=== PATIENT | female | born 1970 | race Caucasian/White ===

== ENCOUNTER 2024-09-01 14:53 | Outpatient (OUT) | payer OTHER, MEDICAID, SELFPAY ==
--- OUTSIDE RECORDS SUMMARY | 2024-08-28 16:14 | XMS_ITS | Encounter Summary ---
Author Organization [facility] [place] [facility] tem Address [id number] [address] [place] [address] Care Team Providers Care Roving Department Supervisor Name Role Phone Ivett Dhillon APRN-FAMILY MEDICINE PHYSICIAN ASSISTANT Primary Care Provider Reason for Visit * Reason Comments Back Pain Pt states she had a neuro-stimulator placed in her back about 1 year at [facility]. She states the surgeon has since moved but the area is leaking fluid and is very painful to touch. Encounter Details Date Type Department Care Team (Late st Contact Info) Description 08/28/2024 4:14 PM EDT - 08/28/2024 7:06 PM EDT Emergency [facility] - Emergency [address] [place] [address] Cody Linn, DO [address] [place] [id number] Discharge Disposition: Left Without Treatment Social History Tobacco Use Types Packs/Day Years Used Date Smoking Tobacco: Heavy Smoker Cigarettes 1 25 Smokeless Tobacco: Never Alcohol Use Standard Drinks/Week Comments No 0 (1 standard drink = 0.6 oz pur e alcohol) [facility] Utilities Answer Date Recorded In the past 12 months has [employer] electric, gas, oil, or water company threatened to shut off services in your home? No 11/14/2023 PRAPARE - Transportation Answer Date Re corded In the past 12 months, has l ack of transportation kept you from medical appointments or from getting medications? No 10/20 In the past 12 months, has l ack of transportation kept you from meetings, work, or from getting things needed for daily living? No 11/14/2023 Housing Instability Answer Date Recorde d Are you worried or concerned that in the next two months you may not have stable housing that you own, rent or stay in as a part of a household? No 11/14/2023 Childcare Answer Date Recorded Childcare Unknown 07/18/2018 Employment Answer Date Recorded Employment Unknown 07/18/2018 Hunger Screening Answer Date Recorded Within the past 12 months we worried whether our food would run out before we got money to buy more. Never True 08/28/2024 Within the past 12 months th e food we bought just didn't last and we didn't have money to get more. Never True 08/28/2024 Purpose - Life Answer Date Recorded Purpose and direction in life Unknown Comments No Sex and Gender Information Value Date Recorded Sex Assigned at Not on file Legal Sex Female 11:36 AM EDT Gender Identity Not on file Sexual Orientation Not on file documented as of this encounter Last Filed Vital Signs Vital Sign Reading Time Taken Comments Blood Pressure 133/85 08/28/2024 4:32 PM EDT Pulse 92 08/28/2024 4:32 PM EDT Temperature 36.9 C (98.4 F) 08/28/2024 4:32 PM EDT Respiratory Rate 18 08/28/2024 4:32 PM EDT Oxygen Saturation 100% 08/28/2024 4:32 PM EDT Inhaled Oxygen Concentration - - Weight 122.5 kg (270 lb) 08/28/2024 4:32 PM EDT Height 182.9 cm (6') 08/28/2024 4:32 PM EDT Body Mass Index 36.62 08/28/2024 4:32 PM EDT documented in this encounter Medications at Time of Discharge amitriptyline (ELAVIL) 50 mg tablet Take 1 tablet (50 mg total) by mouth nightly. 30 tablet 5 07/18/2016 baclofen (LIORESAL) 10 mg tablet Take 1 tablet (10 mg total) by mouth nightly. benzonatate (TESSALON PERLES) 100 mg capsule Take 1 capsule (100 mg total) by mouth every 8 (eight) hours. 21 capsule 02/06/2022 benzonatate (TESSALON PERLES) 100 mg capsule Take 1 capsule (100 mg total) by mouth every 8 (eight) hours. 21 capsule 05/11/2023 BROVANA 15 mcg/2 mL solution for nebulizationIndic ations:Chronic obstructive pulmonary disease, unspecified COPD type ([facility]) INHALE 2 ML (15 MCG TOTAL) BY NEBULIZATION 2 (TWO) TIMES A DAY. 120 mL 5 09/14/2020 budesonide-formot [place] (SYMBICORT) 160-4.5 mcg/actuation inhaler Inhale 2 puffs in the morning and 2 puffs before bedtime. calcium carbonate (OS-MIGUEL) 500 mg calcium (1,250 mg) tablet Take 1 tablet (500 mg total) by mouth in the morning and 1 tablet (500 mg total) before bedtime. 02/02/2020 cetirizine (ZyrTEC) 10 mg capsule Take 1 capsule (10 mg total) by mouth in the morning. cyanocobalamin (VITAMIN B12) 1,000 mcg tablet, sublingual Place 1 tablet (1,000 mcg total) under the tongue daily. 90 tablet 3 11/25/2020 dicyclomine (BENTYL) 20 mg tablet Take 1 tablet (20 mg total) by mouth every 6 (six) hours. DULoxetine (CYMBALTA) 30 mg capsule Take 1 capsule (30 mg total) by mouth 2 (two) times a day. 60 capsule 1 09/05/2016 ergocalciferol (DRISDOL) 1,250 mcg (50,000 unit) capsule Take 1 capsule (50,000 Units total) by mouth once a week. SUNDAYS 8 capsule 11/28/2020 famotidine (PEPCID) 20 mg tablet Take 1 tablet (20 mg total) by mouth in the morning. ferrous sulfate 325 (65 FE) mg tablet Take 1 tablet (325 mg total) by mouth daily with breakfast. fluticasone propionate (FLONASE) 50 mcg/actuation nasal spray Administer 1 spray into each nostril in the morning. fluticasone/vilan terol (BREO ELLIPTA INHL) Inhale. folic acid (FOLVITE) 1 mg tablet Take 1 tablet (1 mg total) by mouth in the morning. furosemide (LASIX) 40 mg tablet Take 1 tablet (40 mg total) by mouth 2 (two) times a day before meals. gabapentin (NEURONTIN) 400 mg capsule Take 600 mg by mouth in the morning and 600 mg before bedtime. gabapentin (NEURONTIN) 800 mg tablet Take 1 tablet (800 mg total) by mouth nightly. ipratropium-albut [place] (DUO-NEB) 0.5 mg-3 mg(2.5 mg base)/3 mL nebulizer Inhale 3 mL by nebulization 4 (four) times a day as needed for wheezing. ketorolac (ACULAR) 0.5 % ophthalmic solution Administer 1 drop to the right eye every 6 (six) hours. 5 mL 10/04/2021 meclizine (ANTIVERT) 25 mg tablet Take 1 tablet (25 mg total) by mouth 3 (three) times a day as needed for dizziness. 20 tablet 04/19/2024 metoprolol succinate XL (TOPROL XL) 25 mg 24 hr tablet Take 1 tablet (25 mg total) by mouth in the morning. 02/07/2021 nicotine (NICODERM CQ) 14 mg/[address] 1 patch on the skin daily. pantoprazole (PROTONIX) 40 mg EC tablet Take 1 tablet (40 mg total) by mouth in the morning. pramipexole (MIRAPEX) 0.5 mg tablet TAKE 1 TABLET BY MOUTH EVERY NIGHT 2 TO 3 HOURS BEFORE BEDTIME 03/01/2021 roflumilast (DALIRESP) 500 mcg tablet Take 1 tablet (500 mcg total) by mouth daily. therapeutic multivitamin (THERAGRAN) tablet Take 1 tablet by mouth in the morning. zoledronic enyg-jemjtaiO-dpx er (RECLAST) 5 mg/100 mL piggyback Infuse 100 mL (5 mg total) into a venous catheter once. documented as of this encounter Plan of Treatment Not on file documented as of this encounter Goals Goal Patient Goal Type Associated Problems Recent Progress Patient-Stated? Author Home with self care General Yes Teresa Momin, IVONNE Note: Evaluation of progress towards goal: Patient plans to return home with self care and the support of her significant other and son. documented as of this encounter Visit Diagnoses Not on filedocumented in this encounter Care Teams Roving Department Supervisor Relationship Specialty Start Date End Date Ivett Dhillon APRN-FAMILY MEDICINE PHYSICIAN ASSISTANT PCP - General Nurse Practitioner 11/10/23 documented as of this encounter
--- OUTSIDE RECORDS SUMMARY | 2024-09-01 13:40 | XMS_ITS | Encounter Summary ---
Author Organization [facility] Address [address] [place] [address] Care Team Providers Care Plug Making Operator Name Role Phone Ivett Dhillon NP Unavailable [phone] Julio Spencer MD Primary Care Provider [phone] Julio Spencer MD Unavailable Reason for Visit * Reason Comments Medicare Annual Wellness Visit Initial Encounter Details Date Type Department Care Team (Late st Contact Info) Description 09/01/2024 1:40 PM EDT Office Visit [facility] [address] [place] [address] Ivett Dhillon NP [address] [place] [id number] Centrilobular emphysema (HCC) (Primary Dx); Gastroesophageal reflux disease without esophagitis; Morbid (severe) obesity due to excess calories (CMS-HCC); Cigarette nicotine dependence without complication; Encounter for subsequent annual wellness visit (AWV) in Medicare patient; Non-compliance with treatment; Encounter for screening mammogram for malignant neoplasm of breast; Iron deficiency anemia following bariatric surgery Social History Tobacco Use Types Packs/Day Years Used Date Smoking Tobacco: Every Day Cigarettes Smokeless Tobacco: Never Comments:Started smokin + years Alcohol Use Standard Drinks/Week Comments Yes 0 (1 standard drink = 0.6 oz pure alcohol) 1-2 drinks monthly or less, caffeine more than 4 cups per day Social Connection and Isolation Panel [NHANES] A nswer Date Recorded In a typical week, how many times do you talk on the phone with family, friends, or neighbors? Three times a week 04/07/19 How often do you get togethe r with friends or relatives? Twice a week 04/07/2023 How often do you attend chur ch or mormon services? 1 to 4 times per year 04/07/2023 Do you belong to any clubs o r organizations such as voodoo groups, unions, fraternal or athletic groups, or school groups? No 04/07/2023 How often do you attend meet ings of the clubs or organizations you belong to? Never 04/07/2023 Are you , , di vorced, , never , or living with a partner? 04/07/2023 AUDIT-C Answer Date Recorded Q1: How often do you have a drink containing alc ohol? Monthly or less 04/07/2023 Q2: How many drinks containi ng alcohol do you have on a typical day when you are drinking? 1 or 2 04/07/2023 Q3: How often do you have si x or more drinks on one occasion? Less than monthly 04/07/2023 Overall Financial Resource Strain (CARDIA) Answe r Date Recorded How hard is it for you to pa y for the very basics like food, housing, medical care, and heating? Somewhat hard 04/07/2023 PHQ-2 Answer Date Recorded Patient Health Questionnaire-2 Score 0 09/01/2024 [facility] - Occupational Stress Questionnaire Answer Date Recorded Do you feel stress - tense, restless, nervous, or anxious, or unable to sleep at night because your mind is troubled all the time - these days? Not at all 04/07/2023 Exercise Vital Sign Answer Date Recorde d On average, how many days pe r week do you engage in moderate to strenuous exercise (like a brisk walk)? 0 days 04/07/2023 On average, how many minutes do you engage in exercise at this level? 0 min 04/07/2023 Hunger Vital Sign Answer Date Recorded Within the past 12 months, y ou worried that your food would run out before you got the money to buy more. Sometimes true Within the past 12 months, t he food you bought just didn't last and you didn't have money to get more. Sometimes true PRAPARE - Transportation Answer Date Re corded In the past 12 months, has l ack of transportation kept you from medical appointments or from getting medications? No 03/21 In the past 12 months, has l ack of transportation kept you from meetings, work, or from getting things needed for daily living? No 04/07/2023 Housing Stability Vital Sign Answer Felice e Recorded In the last 12 months, was t here a time when you were not able to pay the mortgage or rent on time? No 04/07/2023 In the last 12 months, how many places have you lived? 1 04/07/2023 In the last 12 months, was t here a time when you did not have a steady place to sleep or slept in a senior care (including now)? No 04/07/2023 Comments Unknown Sex and Gender Information Value Date Recorded Sex Assigned at Not on file Legal Sex Female 6:45 PM EDT Gender Identity Not on file Sexual Orientation Not on file documented as of this encounter Last Filed Vital Signs Vital Sign Reading Time Taken Comments Blood Pressure 110/68 09/01/2024 1:39 PM EDT Pulse 102 09/01/2024 1:39 PM EDT Temperature 37.2 C (99 F) 09/01/2024 1:39 PM EDT Respiratory Rate 20 09/01/2024 1:39 PM EDT Oxygen Saturation 91% 09/01/2024 1:39 PM EDT Inhaled Oxygen Concentration - - Weight 107 kg (235 lb) 09/01/2024 1:39 PM EDT Height - - Body Mass Index 31.87 02/26/2024 2:31 PM EST documented in this encounter Functional Status * Over the past 2 weeks, how often have you been bothered by any of the following problems? Question Answer Date of Assessment Author Little interest or pleasure in doing things Not at all 09/01/2024 1:42 PM EDT ASHOK FULTON Feeling down, depressed, or hopeless Not at all 09/01/2024 1:42 PM EDT ASHOK FULTON Patient Health Questionnaire -2 Score 0 09/01/2024 1:42 PM EDT ASHOK FULTON * Question Answer Date of Assessment Author Trouble falling or staying asleep, or sleeping too much Nearly every day 09/01/2024 1:42 PM EDT ASHOK FULTON Feeling tired or having little energy Nearly every day 09/01/2024 1:42 PM EDT ASHOK FULTON Poor appetite or overeating Nearly every day 09/01/2024 1:42 PM EDT ASHOK FULTON A Feeling bad about yourself - or that you are a failure or have let yourself or your family down Not at all 09/01/2024 1:42 PM EDT ASHOK FULTON Trouble concentrating on things, such as reading the newspaper or watching television Not at all 09/01/2024 1:42 PM EDT ASHOK FULTON A Moving or speaking so slowly that other people could have noticed? Or the opposite - being so fidgety or restless that you have been moving around a lot more than usual. Nearly every day 09/01/2024 1:42 PM EDT ASHOK FULTON Thoughts that you would be better off or hurting yourself in some way Not at all 09/01/2024 1:42 PM EDT REDD FULTON Patient Health Questionnaire-9 Score 12 09/01/2024 1:42 PM EDT HEMAL FULTON documented as of this encounter Progress Notes * Ivett Dhillon NP - 09/01/2024 7:18 AM EDTAssociated Problem(s): Iron deficiency anemia following bariatric surgery Non compliant with iron, has been referred to hematology at [facility] * Ivett Dhillon NP - 09/01/2024 7:16 AM EDTAssociated Problem(s): Non- compliance with treatment Cancels and no shows for appts, as well as fu for infusions Does not take her supplements regularly for post bariatric surgery maintenance * Ivett Dhillon NP - 09/01/2024 7:15 AM EDTAssociated Problem(s): Encounter for subsequent annual wellness visit (AWV) in Medicare patient Reviewed Ht/Wt/BMI Recommend eye exam yearly Recommend dental exams twice a year Balance work/leisure activities Exercises is recommended most days of the week (appropriate as chronic conditions allow) Follow up yearly and prn * Ivett Dhillon NP - 09/01/2024 6:45 AM EDTAssociated Problem(s): Cigarette nicotine dependence without complication The patient has been advised of the risks of continued smoking: stroke, CA, all forms of cancer, lung disease, and . Options for quitting smoking include: cold turkey, hypnosis, acupuncture, nicotine replacement meds(gum, lozenges, and patches), Buproprion, and Varenicline. At this time pt is encouraged to evaluate their goals for wanting to quit smoking, and reach out toprovider when ready to start this process * Ivett Dhillon NP - 09/01/2024 6:44 AM EDTAssociated Problem(s): Morbid (severe) obesity due to excess calories ([facility]) Discussed with patient their BMI (actual, verses recommended). We have also discussed lifestyle modifications: attempts to perform physical activity as chronic conditions allow, also to monitor dietary intake: increasing protein/fruits/veggies and lowering carb intake (unless contraindicated). Limit sodas, juices, and sugary drinks. * Ivett Dhillon NP - 09/01/2024 6:44 AM EDTAssociated Problem(s): Gastroesophageal reflux disease without esophagitis Recommendations: freq small meals, nothing to eat or drink at least 2 hours prior to bed, limit caffeine, alcohol, as well as spicy foods Meds to limit or avoid if possible: NSAIDS Elevate HOB if possible Current meds: pepcid and pantoprazole * Ivett Dhillon NP - 09/01/2024 6:44 AM EDTAssociated Problem(s): Centrilobular emphysema (HCC) Continue with current inhalers Recommend quitting smoking documented in this encounter Plan of Treatment Upcoming Encounters Date Type Department Care Team (Late st Contact Info) Description 10/07/2024 10:00 AM EDT Office Visit [facility] [address] [place] [address] Ivett Dhillon NP [address] [place] [phone] 09/07/2025 10:00 AM EDT Office Visit [facility] [address] [place] [address] Ivett Dhillon NP [address] [place] [address] Scheduled Orders Name Type Priority Associated Diagnoses Orde r Schedule Bilateral screening mammogram Imaging Routine Encounter for screening mammogram for malignant neoplasm of breast Expected: 09/01/2024 (Approximate), Expires: 11/02/2025 documented as of this encounter Visit Diagnoses Diagnosis Centrilobular emphysema (HCC)- Primary Gastroesophageal reflux disease without esophagitis Esophageal reflux Morbid (severe) obesity due to excess calories ([facility]) Cigarette nicotine dependence without complication Encounter for subsequent annual wellness visit (AWV) in Medicare patient Non-compliance with treatment Personal history of noncompliance with medical treatment, presenting hazards to health Encounter for screening mammogram for malignant neoplasm of breast Iron deficiency anemia following bariatric surgery documented in this encounter Additional Health Concerns Assessment Noted Time PHQ-9 Depression Total Score: 12 025 1:42 PM EDT documented as of this encounter Care Teams Plug Making Operator Relationship Specialty Start Date End Date Julio Spencer MD [address] [place] [phone] PCP - General Family Medicine 03/15/23 Julio Spencer MD [address] [place] [phone] PCP - Devoted 03/21/24 Ivett Dhillon NP Referring Physician Family Medicine 10/29/22 documented as of this encounter
--- OUTSIDE RECORDS SUMMARY | 2024-09-01 14:59 | XMS_ITS | Clinical Summary ---
Author Organization [facility] Address [address] [place], [place] [id number] Care Team Providers Care Granulator Tender Name Role Phone BraxtonjooaudraPippaindira Sargent CNP Primary Care Provider [phone] Allergies Active Allergy Reactions Criticality Noted Date Comments Heparin Intolerance 05/04/2014 Pt risk of GI bleed Nsaids (Non-Steroidal Anti-Inflammatory Drug) Intolerance 05/04/2014 Pt high risk for GI bleed Medications amitriptyline (ELAVIL) 50 mg tabletIndicatio ns:Anemia, unspecified 03/25/19 15 Active furosemide (LASIX) 40 mg tabletIndicatio ns:Anemia, unspecified 03/24/19 15 Active gabapentin (NEURONTIN) 300 mg capsuleIndicati ons:Anemia, unspecified 03/25/19 15 Active HYDROcodone-feroz taminophen (NORCO) 5-325 mg per tabletIndicatio ns:Anemia, unspecified 03/26/[address] (PROTONIX) 40 mg tabletIndicatio ns:Anemia, unspecified 12/29/19 14 Active tiZANidine (ZANAFLEX) 4 mg tabletIndicatio ns:Anemia, unspecified 03/25/19 15 Active cyanocobalamin (VITAMIN B-12) 1,000 mcg tabIndications: prevention of vitamin B12 deficiency Take 1,000 mcg by mouth once daily. 1000 mcg injection once a month also. Indications: PREVENTION OF VITAMIN B12 DEFICIENCY Active Ferrous Fumarate 324 mg (106 mg iron) tabIndications: Anemia, unspecified Take 1 tablet by mouth once daily. Active folic acid 1 mg tabletIndicatio ns:Anemia, unspecified Take 1 mg by mouth once daily. Active Ascorbic Acid (VITAMIN C) 500 mg cpERIndications :Anemia, unspecified Take 1 tablet by mouth once daily. Active ergocalciferol, vitamin D2, (VITAMIN D) 50,000 unit capsuleIndicati ons:prevention of vitamin D deficiency Take 50,000 Units by mouth once daily. Indications: PREVENTION OF VITAMIN D DEFICIENCY Active MEDROXYPROGESTE ANGY ACETATE (DEPO-PROVERA INTRAMUSC.) Inject 1 Dose intramuscularly every 3 months. Active Active Problems Problem Noted Date Diagnosed Date Anemia 04/20/2014 Overview (11/18/2014): ICD-10 Go-Live Social History Tobacco Use Types Packs/Day Years Used Date Smoking Tobacco: Every Day Smokeless Tobacco: Never Alcohol Use Standard Drinks/Week Comments No 0 (1 standard drink = 0.6 oz pur e alcohol) Comments Unknown Sex and Gender Information Value Date Recorded Sex Assigned at Not on file Legal Sex Female 1:21 PM EST Gender Identity Not on file Sexual Orientation Not on file Last Filed Vital Signs Vital Sign Reading Time Taken Comments Blood Pressure 133/85 03/15/2015 2:54 PM EST Pulse 105 03/15/2015 2:54 PM EST Temperature 36.8 C (98.2 F) 06/08/2014 9:00 AM EDT Respiratory Rate 16 03/15/2015 2:54 PM EST Oxygen Saturation 99% 05/10/2014 10:52 AM EDT Inhaled Oxygen Concentration - - Weight 120.7 kg (266 lb) 03/15/2015 2:54 PM EST Height 182.9 cm (6') 03/15/2015 2:54 PM EST Body Mass Index 36.08 03/15/2015 2:54 PM EST Plan of Treatment Health Maintenance Due Date Last Done Comments Anxiety Screening 1989 Depression Screening 1989 HIV Screening 1989 Hepatitis C Screening 1989 DTaP,Tdap,Td Vaccine (1 - Tdap) 1990 Hepatitis B Vaccine (1 of 3 - 19+ 3-dose series) 03/14 Cervical Cancer Screening [address] M[address] Colonography 2016 Cologuard (FIT-DNA) 2016 Colonoscopy 2016 Colorectal Cancer Screening 2016 Diabetes Screening 2016 Fecal Occult Blood 2016 Lipid Screening 2016 Sigmoidoscopy 2016 Pneumococcal Vaccine: 50+ (1 of 1 - PCV) 2021 Shingrix Vaccine (1 of 2) 2021 Covid-19 Vaccine (1 - 2023- season) 2023 Influenza Vaccine (#1) [address] [place] [address] [place] [address] MEDICARE MEDICAID [place] Care Teams Granulator Tender Relationship Specialty Start Date End Date Ivett Dhillon, MACHINE BANDER AND CELLOPHANER HELPER PCP - General Family Medicine 09/28/14
--- OUTSIDE RECORDS SUMMARY | 2024-09-01 14:59 | XMS_ITS | Encounter Summary ---
Author Organization [facility] tem Address [id number] [address] [place] [address] Care Team Providers Care Word Processing Operator Name Role Phone Ivett Dhillon IN HOME TUTOR-STRAW BOSS Primary Care Provider Encounter Details Date Type Department Care Team (Late st Contact Info) Description 03/01/2020 Telephone [facility] [address] [facility] [place] [place] [id number] Irene Salcido MD [address] [facility] [address] [place] [address] Social History Tobacco Use Types Packs/Day Years Used Date Smoking Tobacco: Heavy Smoker Cigarettes 1 25 Smokeless Tobacco: Never Alcohol Use Standard Drinks/Week Comments No 0 (1 standard drink = 0.6 oz pur e alcohol) Childcare Answer Date Recorded Childcare Unknown 07/18/2018 Employment Answer Date Recorded Employment Unknown 07/18/2018 Purpose - Life Answer Date Recorded Purpose and direction in life Unknown Comments No Sex and Gender Information Value Date Recorded Sex Assigned at Not on file Legal Sex Female 11:36 AM EDT Gender Identity Not on file Sexual Orientation Not on file COVID-19 Exposure Response Date Recorded In the last month, have you been in contact with someone who was confirmed or suspected to have Coronavirus / COVID-19? No / Unsure 03/02/2020 10:26 AM EST documented as of this encounter Miscellaneous Notes * Telephone Encounter - Amy Richard - 03/01/2020 10:26 AM EST Can you complete the progress note dated 02/29/20? Cardiology called requesting the note. * Telephone Encounter - Irene Salcido MD - 03/01/2020 10:26 AM EST complete documented in this encounter Plan of Treatment Not on file documented as of this encounter Visit Diagnoses Not on filedocumented in this encounter Additional Health Concerns Infection Onset Date Last Indicated Resolved Time COVID-19 Rule-Out 02/06/2022 02/06/2022 02/06/2022 3:19 AM EST Respiratory Rule-Out 04/19/2024 04/19/2024 025 2:24 PM EST Respiratory Rule-Out 04/28/2024 04/28/2024 025 12:02 AM EDT documented as of this encounter Care Teams Word Processing Operator Relationship Specialty Start Date End Date Ivett Dhillon, IN HOME TUTOR-STRAW BOSS PCP - General Nurse Practitioner 11/10/23 documented as of this encounter
--- OUTSIDE RECORDS SUMMARY | 2024-09-01 14:59 | XMS_ITS | Encounter Summary ---
Author Organization [facility] tem Address [id number] [address] [place] [address] Care Team Providers Care Call Center Analyst Name Role Phone Ivett Dhillon GEOINT ANALYST-ESTHETIC DERMATOLOGIST Primary Care Provider Encounter Details Date Type Department Care Team (Latest Contact Info) Description 08/28/2024 Travel Social History Tobacco Use Types Packs/Day Years Used Date Smoking Tobacco: Heavy Smoker Cigarettes 1 25 Smokeless Tobacco: Never Alcohol Use Standard Drinks/Week Comments No 0 (1 standard drink = 0.6 oz pur e alcohol) [facility] Utilities Answer Date Recorded In the past 12 months has e electric, gas, oil, or water company threatened [...] on file documented as of this encounter Plan of Treatment Not on file documented as of this encounter Goals Goal Patient Goal Type Associated Problems Recent Progress Patient-Stated? Author Home with self care General Yes Teresa Momin, RN Note: Evaluation of progress towards goal: Patient plans to return home with self care and the support of her significant other and son. documented as of this encounter Visit Diagnoses Not on filedocumented in this encounter Care Teams Call Center Analyst Relationship Specialty Start Date End Date Ivett Dhillon, TARIQ-ESTHETIC DERMATOLOGIST PCP - General Nurse Practitioner 11/10/23 documented as of this encounter
--- OUTSIDE RECORDS SUMMARY | 2024-09-01 14:59 | XMS_ITS | Clinical Summary ---
Author Organization [employer] [facility] Address [id number] [address] [place] [address] Care Team Providers Care Routeman Name Role Phone Ivett Dhillon SEWING TEACHER-PLEATING MACHINE OPERATOR Primary Care Provider Allergies Active Allergy Reactions Criticality Noted Date Comments Heparin Analogues bleeding 04/05/2016 Was told not to take this due to her gastric bypass. No real allergy Nsaids (Non-Steroidal Anti-Inflammatory Drug) bleeding 04/05/2016 Medications furosemide (LASIX) 40 mg tablet Take 1 tablet (40 mg total) by mouth 2 (two) times a day before meals. Active ferrous sulfate 325 (65 FE) mg tablet Take 1 tablet (325 mg total) by mouth daily with breakfast. Active folic acid (FOLVITE) 1 mg tablet Take 1 tablet (1 mg total) by mouth in the morning. Active famotidine (PEPCID) 20 mg tablet Take 1 tablet (20 mg total) by mouth in the morning. Active therapeutic multivitamin (THERAGRAN) tablet Take 1 tablet by mouth in the morning. Active amitriptyline (ELAVIL) 50 mg tablet Take 1 tablet (50 mg total) by mouth nightly. 30 tablet 5 07/19/19 17 Active DULoxetine (CYMBALTA) 30 mg capsule Take 1 capsule (30 mg total) by mouth 2 (two) times a day. 60 capsule 1 09/06/19 17 Active Additional Information Patient taking differently: 60 mgoralDaily, 60 mg in the morning and 30 mg at night, Reported on 11/14/2023 ipratropium-albu teroL (DUO-NEB) 0.5 mg-3 mg(2.5 mg base)/3 mL nebulizer Inhale 3 mL by nebulization 4 (four) times a day as needed for wheezing. Active roflumilast (DALIRESP) 500 mcg tablet Take 1 tablet (500 mcg total) by mouth daily. Active calcium carbonate (OS-MIGUEL) 500 mg calcium (1,250 mg) tablet Take 1 tablet (500 mg total) by mouth in the morning and 1 tablet (500 mg total) before bedtime. 02/02/20 20 Active nicotine (NICODERM CQ) 14 mg/[address] 1 patch on the skin daily. Active gabapentin (NEURONTIN) 400 mg capsule Take 600 mg by mouth in the morning and 600 mg before bedtime. Active zoledronic apff-cuwwkidL-zy ter (RECLAST) 5 mg/100 mL piggyback Infuse 100 mL (5 mg total) into a venous catheter once. Active cetirizine (ZyrTEC) 10 mg capsule Take 1 capsule (10 mg total) by mouth in the morning. Active fluticasone propionate (FLONASE) 50 mcg/actuation nasal spray Administer 1 spray into each nostril in the morning. Active BROVANA 15 mcg/2 mL solution for nebulizationIndi cations:Chronic obstructive pulmonary disease, unspecified COPD type (CMS-HCC) INHALE 2 ML (15 MCG TOTAL) BY NEBULIZATION 2 (TWO) TIMES A DAY. 120 mL 5 09/15/19 21 Active budesonide-formo teroL (SYMBICORT) 160-4.5 mcg/actuation inhaler Inhale 2 puffs in the morning and 2 puffs before bedtime. Active baclofen (LIORESAL) 10 mg tablet Take 1 tablet (10 mg total) by mouth nightly. Active gabapentin (NEURONTIN) 800 mg tablet Take 1 tablet (800 mg total) by mouth nightly. Active pantoprazole (PROTONIX) 40 mg EC tablet Take 1 tablet (40 mg total) by mouth in the morning. Active cyanocobalamin (VITAMIN B12) 1,000 mcg tablet, sublingual Place 1 tablet (1,000 mcg total) under the tongue daily. 90 tablet 3 11/26/19 21 Active ergocalciferol (DRISDOL) 1,250 mcg (50,000 unit) capsule Take 1 capsule (50,000 Units total) by mouth once a week. SUNDAYS 8 capsule 11/29/19 21 Active metoprolol succinate XL (TOPROL XL) 25 mg 24 hr tablet Take 1 tablet (25 mg total) by mouth in the morning. 02/08/20 21 Active pramipexole (MIRAPEX) 0.5 mg tablet TAKE 1 TABLET BY MOUTH EVERY NIGHT 2 TO 3 HOURS BEFORE BEDTIME 03/01/19 22 Active dicyclomine (BENTYL) 20 mg tablet Take 1 tablet (20 mg total) by mouth every 6 (six) hours. Active ketorolac (ACULAR) 0.5 % ophthalmic solution Administer 1 drop to the right eye every 6 (six) hours. 5 mL 10/05/19 22 Active Additional Information Patient not taking.Reported on 11/14/2023 benzonatate (TESSALON PERLES) 100 mg capsule Take 1 capsule (100 mg total) by mouth every 8 (eight) hours. 21 capsule 02/07/20 22 Active Additional Information Patient not taking.Reported on 05/11/2023 fluticasone/tasha nterol (BREO ELLIPTA INHL) Inhale. Active benzonatate (TESSALON PERLES) 100 mg capsule Take 1 capsule (100 mg total) by mouth every 8 (eight) hours. 21 capsule 05/11/19 24 Active meclizine (ANTIVERT) 25 mg tablet Take 1 tablet (25 mg total) by mouth 3 (three) times a day as needed for dizziness. 20 tablet 04/20/19 25 Active amoxicillin-pot clavulanate (AUGMENTIN) 875-125 mg per tablet Take 1 tablet by mouth every 12 (twelve) hours for 7 days. 14 tablet 08/13/19 25 025 Active Problems Problem Noted Date Diagnosed Date Cellulitis of right lower extremity 11/14/2023 Migraine headache without aura 04/08/2023 Restless leg syndrome 04/08/2023 Gastroesophageal reflux disease without esophagi tis 02/12/2023 Chronic diastolic heart failure 12/08/2020 Overview (11/15/2023): Last Assessment & Plan: [facility] II- currently euvolemic Continue GDMT- continue lasix 40 mg bid Monitor daily weights, I&O, fluid restriction 1.5-2L/day, renal function and electrolytes Last Assessment & Plan: [facility] II- currently euvolemic Continue GDMT- continue lasix 40 mg bid Monitor daily weights, I&O, fluid restriction 1.5-2L/day, renal function and electrolytes Iron deficiency anemia following bariatric surge ry 11/25/2020 H/O gastric bypass 11/25/2020 Tobacco abuse 06/14/2019 Hypoxemia 06/14/2019 COPD (chronic obstructive pulmonary disease) Age-related osteoporosis wit hout current pathological fracture 06/27/2018 Vitamin B12 deficiency 07/02/2016 Osteopenia 07/02/2016 Thoracic spondylosis without myelopathy 04/05/19 17 Lumbar spondylosis 04/05/2016 Lumbosacral spondylosis without myelopathy 04/05 Displacement of thoracic int ervertebral disc without myelopathy 04/05/2016 Obesity, unspecified 04/05/2016 Obstructive sleep apnea 04/05/2016 Right shoulder pain 04/05/2016 Lumbago 04/05/2016 Back muscle spasm 04/05/2016 Scapulohumeral fibrositis 04/05/2016 Chronic pain syndrome 04/05/2016 Essential hypertension 10/08/2011 Overview (11/15/2023): Last Assessment & Plan: Hypertension is well controlled 135/81 Continue all meds Encounters Date Type Department Care Team Description 08/28/2024 4:14 PM EDT - 08/28/2024 7:06 PM EDT Emergency [facility] - Emergency [address] [place] [id number] Cody Linn, DO Discharge Disposition: Left Without Treatment 08/28/2024 Travel 08/12/2024 12:17 PM EDT - 08/12/2024 3:18 PM EDT Emergency [facility] - Emergency [address] [place] [address] Jefe Greenberg MD Dizziness (Primary Dx); Anemia, unspecified type; Upper respiratory tract infection, unspecified type Discharge Disposition: Home 08/12/2024 Travel 06/03/2024 1:27 PM EDT - 06/03/2024 4:42 PM EDT Emergency [facility] - Emergency [address] [place] [address] Tamara Salinas MD Cellulitis of right lower extremity (Primary Dx); Chest pain, unspecified type Discharge Disposition: Home 06/03/2024 Travel from Last 3 Months Immunizations Immunization Administration Dates Next Due Tdap 10/28/2022 Family History Medical History Relation Name Comments Heart disease Father COPD Mother Diabetes Mother Heart disease Mother Breast cancer Neg Hx Relation Name Status Comments Father Mother Social History Tobacco Use Types Packs/Day Years Used Date Smoking Tobacco: Heavy Smoker Cigarettes 03 14 Smokeless Tobacco: Never Tobacco Cessation:Ready to Q uit: Not Asked; Counseling Given: Not Answered Alcohol Use Standard Drinks/Week Comments No 0 (1 standard drink = 0.6 oz pur e alcohol) [facility] Utilities Answer Date Recorded In the past 12 months has th e electric, gas, oil, or water company [...] Mass Index 36.62 08/28/2024 4:32 PM EDT Plan of Treatment Health Maintenance Due Date Last Done Comments Tobacco Counseling 1971 Depression Screening 1983 Adult BMI Follow Up Plan 1989 Pap Smear 1992 Zoster (Shingles) Vaccine (1 of 2) 2021 Influenza Vaccine 10/19/2024 12/02/2023, , 12/06/2008 Adult BMI Screening 08/28/2025 08/28/2024 Tobacco Screening 08/28/2025 08/28/2024 DTaP,Tdap and Td Vaccines (3 - Td or Tdap) 10/28/2032 10/28/2022, 09/23/2012 Goals Goal Patient Goal Type Associated Problems Recent Progress Patient-Stated? Author Home with self care General Yes Teresa Momin, RN Note: Evaluation of progress towards goal: Patient plans to return home with self care and the support of her significant other and son. Medical Devices Implanted Type Area Tray Delivery Aide Device Identifier Shelf Expiration Date Model / Serial / Lot Scs-10/17/2012 Implanted:10/17 (Quantity not on file) [employer] [id number] / [id number] / Procedures Procedure Name Priority Date/Time Associated Diagnosis Comments POCT , URINE (NUCG) Routine 08/12/2024 2:27 PM EDT POCT NURSING URINE MACROSCOPIC UA Routine 08/12/2024 2:23 PM EDT ER EXTRA URINE STAT 08/12/2024 2:15 PM EDT TROP I, HIGH SENSITIVITY 1 HOUR STAT 08/12/2024 1:40 PM EDT XR CHEST 1 VW STAT 08/12/2024 1:20 PM EDT TROPONIN I, HIGH SENSITIVITY 0 HOUR STAT 08/12/2024 12:31 PM EDT B-TYPE NATRIURETIC PEPTIDE STAT 08/12/2024 12:31 PM EDT TROPONIN I, HIGH SENSITIVITY 0 HOUR STAT 08/12/2024 12:31 PM EDT COMPREHENSIVE METABOLIC PANEL STAT 08/12/2024 12:31 PM EDT CBC WITH AUTO DIFFERENTIAL STAT 08/12/2024 12:31 PM EDT EXTRA TUBES BLUE TOP Routine 08/12/2024 12:30 PM EDT EXTRA TUBES Routine 08/12/2024 12:30 PM EDT ECG 12-LEAD STAT 08/12/2024 12:21 PM EDT POCT NURSING URINE MACROSCOPIC UA Routine 06/03/2024 4:18 PM EDT TROP I, HIGH SENSITIVITY 1 HOUR STAT 06/03/2024 3:34 PM EDT VASC VENOUS DUPLEX LOWER BILATERAL STAT 06/03/2024 3:14 PM EDT XR CHEST 1 VW STAT 06/03/2024 2:29 PM EDT LACTATE W/ REFLEX STAT 06/03/2024 2:2 2 PM EDT TROPONIN I, HIGH SENSITIVITY STAT 06/03/2024 2:22 PM EDT MAGNESIUM STAT 06/03/2024 2:22 PM EDT LIPASE STAT 06/03/2024 2:22 PM EDT APTT STAT 06/03/2024 2:22 PM EDT PROTIME & INR STAT 06/03/2024 2:22 PM EDT D-DIMER STAT 06/03/2024 2:22 PM EDT COMPREHENSIVE METABOLIC PANEL STAT 06/03/2024 2:22 PM EDT CBC WITH AUTO DIFFERENTIAL STAT 06/03/2024 2:22 PM EDT ECG 12-LEAD STAT 06/03/2024 1:31 PM EDT from Last 3 Months Results * POCT , urine (08/12/2024 2:27 PM EDT) [facility] POC Urine Negative Negative, Indeterminate 08/12/2024 2:25 PM EDT [facility] Urine 08/12/2024 2:27 PM EDT 08/12/2024 2:25 PM EDT us Jefe Greenberg MD POINT OF CARE TEST ORDERABLES Fi nal Result [facility] [address] [place] [address], * (ABNORMAL) POCT Nursing Urine Macroscopic UA (08/12/2024 2:23 PM EDT) Only the most recent of2 resultswithin the time period is included. [facility] POC Urine Specific Wilmot 1.025 1.010, 1.015, 1.020, 1.025 08/12/2024 2:17 PM EDT [facility] POC Urine Leukocyte Esterase Negative Negative 08/12/2024 2:17 PM EDT [facility] POC Urine Nitrite Negative Negative 08/12/2024 2:17 PM EDT [facility] POC Urine pH 6.0 5.0, 6.0, 6.5, 7.0, 7.5, 8.0, 8.5, 5.5 08/12/2024 2:17 PM EDT [facility] POC Urine Protein 100 mg/dL(A) Negative 08/12/2024 2:17 PM EDT [facility] POC Urine Glucose Negative Negative 08/12/2024 2:17 PM EDT [facility] POC Urine Ketones Trace(A) Negative 08/12/2024 2:17 PM EDT [facility] POC Urine Urobilinogen 1.0 E.U./dL 08/12/2024 2:17 PM EDT [facility] POC Urine Bilirubin Small(A) Negative 08/12/2024 2:17 PM EDT [facility] POC Urine Blood/HGB Negative Negative 08/12/2024 2:17 PM EDT [facility] Urine 08/12/2024 2:23 PM EDT 08/12/2024 2:17 PM EDT us Jefe Greenberg MD POINT OF CARE TEST ORDERABLES Fi nal Result [facility] [address] [place] [address], * Extra Urine (08/12/2024 2:15 PM EDT) Extra Tube Auto Resulted 08/12/2024 4:02 PM EDT [facility] Urine Urine specimen collection, clean catch / Unknown 08/12/2024 2:15 PM EDT 08/12/2024 2:56 PM EDT us Crystal Link PA-C URINE ORDERABLES Final Resu lt Performing Organization Address [facility] Co de Phone Number [address] [place] [address], [place] * Troponin I, High Sensitivity 1 Hour (08/12/2024 1:40 PM EDT) Only the most recent of2 resultswithin the time period is included. TROPONIN I, HIGH SENSITIVITY 3 <16 ng/L 08/12/2024 2:08 PM EDT [facility] Blood Venous blood / Unknown Venipuncture / Unknown 08/12/2024 1:40 PM EDT 08/12/2024 1:42 PM EDT us Crystal Link PA-C LAB BLOOD ORDERABLES Final Result Performing Organization Address [facility] de Phone Number [address] [place] [address], [place] * X-ray chest 1 view (08/12/2024 1:20 PM EDT) Only the most recent of2 resultswithin the time period is included. Anatomical Region Laterality Modality Body, Chest N/A Computed Radiogr aphy 08/12/2024 1:27 PM EDT Narrative 08/12/2024 1:28 PM EDT CLINICAL HISTORY: Cough Comparison: 06/03/2024 Views: 1 FINDINGS: * Hiatal hernia. Shallow inspiration. Heart size stable. Vasculature improved. No pneumothorax. IMPRESSION: * Improving vascular congestion with hiatal hernia present. Finalized by Ryland Montalvo MD on 08/12/2024 1:28 PM Procedure Note Ryland Montalvo MD - 08/12/2024 CLINICAL HISTORY: Cough Comparison: 06/03/2024 Views: 1 FINDINGS: * Hiatal hernia. Shallow inspiration. Heart size stable. Vasculatureimproved. No pneumothorax. IMPRESSION: * Improving vascular congestion with hiatal hernia present. Finalized by Ryland Montalvo MD on 08/12/2024 1:28 PM us Crystal Link PA-C IMG DIAGNOSTIC IMAGING ORDE RABAYLEEN Final Result * Troponin I, High Sensitivity 0 Hour (08/12/2024 12:31 PM EDT) [facility] TROPONIN I, HIGH SENSITIVITY 3 <16 ng/L 08/12/2024 1:01 PM EDT [facility] Blood Venous blood / Unknown Venipuncture / Unknown 08/12/2024 12:31 PM EDT 08/12/2024 12:32 PM EDT us Crystal Link PA-C LAB BLOOD ORDERABLES Final Result Performing Organization Address City/State/[facility] Co de Phone Number [facility] [address] [place] [address], * (ABNORMAL) CBC auto differential (08/12/2024 12:31 PM EDT) Only the most recent of2 resultswithin the time period is included. [facility] WBC 7.5 4 - 11 x10E9/L 08/12/2024 1:10 PM EDT [facility] RBC Count 4.23 3.8 - 5.2 X10E12/L 08/12/2024 1:10 PM EDT [facility] Hemoglobin 8.5(L) 11.7 - 15.5 g/dL 08/12/2024 1:10 PM EDT [facility] Hematocrit 28.4(L) 35 - 47 % 08/12/2024 1:10 PM EDT [facility] MCV 67(L) 80 - 100 fL 08/12/2024 1:10 PM EDT [facility] MCH 20.1(L) 27 - 34 pg 08/12/2024 1:10 PM EDT [facility] MCHC 30.0(L) 32 - 36 g/dL 08/12/2024 1:10 PM EDT [facility] RDW 19.6(H) 11.5 - 15 % 08/12/2024 1:10 PM EDT [facility] Platelet Count 409 150 - 450 X10E9/L 08/12/2024 1:10 PM EDT [facility] MPV 7.8 7 - 12 fL 08/12/2024 1:10 PM EDT [facility] Neutrophils % 59 % 08/12/2024 1:10 PM EDT [facility] Comment:This is an appended report. These results have been appended to a previously preliminary verified report. Lymphocytes % 30 % 08/12/2024 1:10 PM EDT [facility] Comment:This is an appended report. These results have been appended to a previously preliminary verified report. Monocytes % 9 % 08/12/2024 1:10 PM EDT [facility] Comment:This is an appended report. These results have been appended to a previously preliminary verified report. Basophils % 3 % 08/12/2024 1:10 PM EDT [facility] Comment:This is an appended report. These results have been appended to a previously preliminary verified report. Neutrophils Absolute (M) 4.4 1.5 - 6.6 10*3/uL 08/12/2024 1:10 PM EDT [facility] Comment:This is an appended report. These results have been appended to a previously preliminary verified report. Lymphocytes Absolute 2.2 1.0 - 3.5 10*3/uL 08/12/2024 1:10 PM EDT [facility] Comment:This is an appended report. These results have been appended to a previously preliminary verified report. Monocytes Absolute 0.7 0.0 - 0.9 10*3/uL 08/12/2024 1:10 PM EDT [facility] Comment:This is an appended report. These results have been appended to a previously preliminary verified report. Basophils Absolute 0.2 0.0 - 0.2 10*3/uL 08/12/2024 1:10 PM EDT [facility] Comment:This is an appended report. These results have been appended to a previously preliminary verified report. Differential Type CELLAVISION DIFFERENTIAL 08/12/2024 1:10 PM EDT [facility] Comment:This is an appended report. These results have been appended to a previously preliminary verified report. Blood Venous blood / Unknown Venipuncture / Unknown 08/12/2024 12:31 PM EDT 08/12/2024 12:32 PM EDT Crystal BELTRAN-C LAB BLOOD ORDERABLES Final Result Performing Organization Address City/[facility] Co de Phone Number [address] [place] [address], [place] * (ABNORMAL) B-type natriuretic peptide (08/12/2024 12:31 PM EDT) BNP 102(H) <=100 pg/mL 08/12/2024 12:59 PM EDT [facility] Blood Venous blood / Unknown Venipuncture / Unknown 08/12/2024 12:31 PM EDT 08/12/2024 12:32 PM EDT Crystal BELTRAN-C LAB BLOOD ORDERABLES Final Result Performing Organization Address City/[facility] Co de Phone Number [address] [place] [address], [place] * (ABNORMAL) Comprehensive metabolic panel (08/12/2024 12:31 PM EDT) Only the most recent of2 resultswithin the time period is included. SODIUM 135 134 - 146 mmol/L 08/12/2024 12:52 PM EDT [facility] POTASSIUM 3.8 3.5 - 5.0 mmol/L 08/12/2024 12:52 PM EDT [facility] CHLORIDE 106 98 - 109 mmol/L 08/12/2024 12:52 PM EDT [facility] CARBON DIOXIDE 25 22 - 32 mmol/L 08/12/2024 12:52 PM EDT [facility] ANION GAP 4(L) 5 - 15 mmol/L 08/12/2024 12:52 PM EDT [facility] BLOOD UREA NITROGEN 13 5 - 23 mg/dL 08/12/2024 12:52 PM EDT [facility] CREATININE 0.89 0.40 - 1.00 mg/dL 08/12/2024 12:52 PM EDT [facility] Comment:METHOD TRACEABLE TO IDMS STANDARD GLUCOSE 94 65 - 99 mg/dL 08/12/2024 12:52 PM EDT [facility] CALCIUM 7.9(L) 8.5 - 10.5 mg/dL 08/12/2024 12:52 PM EDT [facility] TOTAL PROTEIN 6.2 6.0 - 8.0 g/dL 08/12/2024 12:52 PM EDT [facility] ALBUMIN 3.3 3.2 - 5.3 g/dL 08/12/2024 12:52 PM EDT [facility] ALKALINE PHOSPHATASE 67 39 - 130 U/L 08/12/2024 12:52 PM EDT [facility] AST 23 <=41 U/L 08/12/2024 12:52 PM EDT [facility] ALT 22 <=31 U/L 08/12/2024 12:52 PM EDT [facility] BILIRUBIN,TOTAL 0.5 0.3 - 1.2 mg/dL 08/12/2024 12:52 PM EDT [facility] EGFR Non-Race Dependent 77 >=60 ml/min/1.7 3sq.m 08/12/2024 12:52 PM EDT [facility] Comment: eGFR not reported due to non-numeric value for Creatinine. Reported eGFR is based on the CKD-EPI 2020 equation that does not use a race coefficient. Blood Venous blood / Unknown Venipuncture / Unknown 08/12/2024 12:31 PM EDT 08/12/2024 12:32 PM EDT us Crystal Link PA-C LAB BLOOD ORDERABLES Final Result Performing Organization Address City/[facility] Co de Phone Number [address] [place] [address], [place] * Light Blue Top (08/12/2024 12:30 PM EDT) Extra Tube Auto Resulted 08/12/2024 2:02 PM EDT [facility] Blood Venous blood / Unknown 08/12/2024 12:30 PM EDT 08/12/2024 12:33 PM EDT Jefe Greenberg MD LAB BLOOD ORDERABLES Final Resul t Performing Organization Address [facility] de Phone Number [address] [place] [address], [place] * ECG 12 lead (08/12/2024 12:21 PM EDT) Only the most recent of2 resultswithin the time period is included. 08/12/2024 12:2 1 PM EDT us Crystal BELTRAN-C ECG ORDERABLES Final Resul t Performing Organization Address [facility] Co de Phone Number [email or web address] * Vas venous duplex lwr bilateral (06/03/2024 3:14 PM EDT) Anatomical Region Laterality Modality Vascular Bilateral Ultrasound 06/03/2024 3:20 PM EDT Narrative 06/03/2024 6:00 PM EDT Right: Limited visualization of veins in the calf due to edema. Non-visualized, absent or surgically harvested Great saphenous superficial vein in the thigh. Remaining visualized deep venous segments are compressible with spontaneous phasic spectral Doppler waveforms. Remaining superficial veins are compressible. Left: Limited visualization of veins in the calf due to edema. Non-visualized, absent or surgically harvested Great saphenous superficial vein in the thigh. Remaining visualized deep venous segments are compressible with spontaneous phasic spectral Doppler waveforms. Remaining superficial veins are compressible. Procedure Note Azam Andrews MD - 06/03/2024 Right: Limited visualization of veins in the calf due to edema.Non-visualized, absent or surgically harvested Great saphenous superficialvein in the thigh. Remaining visualized deep venous segments arecompressible with spontaneous phasic spectral Doppler waveforms. Remaining superficial veins are compressible. Left: Limited visualization of veins in the calf due to edema.Non-visualized, absent or surgically harvested Great saphenous superficialvein in the thigh. Remaining visualized deep venous segments arecompressible with spontaneous phasic spectral Doppler waveforms. Remaining superficial veins are compressible. Radha Hunter APRN-PLEATING MACHINE OPERATOR CV VASCULAR ORDERABLES Fin al Result * Troponin I, High Sensitivity (06/03/2024 2:22 PM EDT) Pathologist [facility] Troponin I, High Sensitivity 3 <16 ng/L 06/03/2024 3:05 PM EDT [facility] Blood Serum / Unknown 06/03/2024 2 :22 PM EDT 06/03/2024 2:33 PM EDT Radha Hunter APRN-PLEATING MACHINE OPERATOR LAB BLOOD ORDERABLES Final Result [address], [place] [address] * Lactate w/ Reflex (06/03/2024 2:22 PM EDT) Pathologist [facility] Lactate w/ Reflex 0.8 0.4 - 2.0 mmol/L 06/03/2024 2:53 PM EDT [facility] Comment: Result did not trigger repeat Lactate, re-order if needed. Blood (PLASMA) 06/03/2024 2: 22 PM EDT 06/03/2024 2:33 PM EDT Radha Hunter APRN-PLEATING MACHINE OPERATOR LAB BLOOD ORDERABLES Final Result Performing Organization Address [facility] Co de Phone Number [address] [address] * APTT (06/03/2024 2:22 PM EDT) aPTT 27 26 - 37 sec 06/03/2024 2:44 PM EDT [facility] Comment:NEW REFERENCE RANGE Blood (PLASMA) 06/03/2024 2: 22 PM EDT 06/03/2024 2:33 PM EDT Radha Hunter APRN-PLEATING MACHINE OPERATOR LAB BLOOD ORDERABLES Final Result Performing Organization Address [facility] Co de Phone Number [address] [address] * Protime & INR (06/03/2024 2:22 PM EDT) Pathologist [facility] Protime 11.5 9.8 - 13.2 sec 06/03/2024 2:44 PM EDT [facility] Comment:NEW REFERENCE RANGE Inr 1.0 0.9 - 1.2 06/03/2024 2:44 PM EDT [facility] Blood (PLASMA) 06/03/2024 2: 22 PM EDT 06/03/2024 2:33 PM EDT Radha Hunter APRN-PLEATING MACHINE OPERATOR LAB BLOOD ORDERABLES Final Result Performing Organization Address [facility] Co de Phone Number [address] [address] * D-Dimer (06/03/2024 2:22 PM EDT) D-dimer 250 <255 ng/mL DDU 06/03/2024 2:44 PM EDT [facility] Comment: Results <255 ng/mL DDU: The presence of a VTE can safely be excluded with a negative D-Dimer result and Wells score. A negative result doesn't exclude the possibility of DIC. The test be repeated along with other diagnostic tests if the patient's symptoms persist or worsen. [email or web address] Blood (PLASMA) 06/03/2024 2: 22 PM EDT 06/03/2024 2:33 PM EDT us Radha Hunter SEWING TEACHER-PLEATING MACHINE OPERATOR LAB BLOOD ORDERABLES Final Result [address] [address] * Magnesium (06/03/2024 2:22 PM EDT) Magnesium 2.0 1.8 - 2.6 mg/dL 06/03/2024 2:57 PM EDT [facility] Blood (PLASMA) 06/03/2024 2: 22 PM EDT 06/03/2024 2:33 PM EDT Radha Hunter SEWING TEACHER-PLEATING MACHINE OPERATOR LAB BLOOD ORDERABLES Final Result Performing Organization Address [facility] Co de Phone Number [address] [address] * Lipase (06/03/2024 2:22 PM EDT) Lipase 29 17 - 40 U/L 06/03/2024 2:54 PM EDT [facility] Blood (PLASMA) 06/03/2024 2: 22 PM EDT 06/03/2024 2:33 PM EDT us Radha Hunter SEWING TEACHER-PLEATING MACHINE OPERATOR LAB BLOOD ORDERABLES Final Result Performing Organization Address [facility] Co de Phone Number [address] [address] from Last 3 Months Insurance MEDICAID [place] [employer] Member Subscriber Plan / Payer (Ef fective 2024-Present) Name:Janee Doty Member ID:[id number] Relation to Subscriber:Self Name:Janee Doty Subscriber ID:[id number] Payer ID:[id number] (NAIC) Group ID:[id number] Type:Not on file Address: [address] [place] [address] Advance Directives * Full Code (Latest Code Status on File) Date Activated Date Inactivated Comments 11/14/2023 9:35 PM 11/16/2023 6:07 PM * Full Code Date Activated Date Inactivated Comments 01/03/2020 11:24 AM 01/03/2020 2:28 PM * Full Code Date Activated Date Inactivated Comments 06/13/2019 6:08 PM 06/15/2019 1:10 PM Healthcare Agents on File Name Relationship Healthcare Agent Relationship Communication Hema Vergara Significant [facility] Care Teams Routeman Relationship Specialty Start Date End Date Ivett Dhillon, SEWING TEACHER-PLEATING MACHINE OPERATOR PCP - General Nurse Practitioner 11/10/23
--- OUTSIDE RECORDS SUMMARY | 2024-09-01 14:59 | XMS_ITS | Encounter Summary ---
Author Organization [facility] tem Address [id number] [address] [place] [address] Care Team Providers Care Customer Sales Specialist Name Role Phone BraxtonjooIvett zhu FUR TRIMMER-FANCY NEEDLEWORKER Primary Care Provider Encounter Details Date Type Department Care Team (Late st Contact Info) Description 03/15/2020 Orders Only [facility] Pulmonary/Sleep Medicine [address] [place] [phone] Ref Prov, [place] [address] Social History Tobacco Use Types Packs/Day Years [...] have Coronavirus / COVID-19? No / Unsure 03/16/2020 6:17 PM EST documented as of this encounter Plan of Treatment Not on file documented as of this encounter Procedures Procedure Name Priority Date/Time Associated Diagnosis Comments [id number] Routine 03/15/2020 documented in this encounter Results * [id number] (03/15/2020) us Not In System Ref Prov LAB BLOOD ORDERABLES Edit ed Result - Final MANUALLY TRANSCRIBED RESULTS documented in this encounter Visit Diagnoses Not on filedocumented in this encounter Additional Health Concerns Infection Onset Date Last Indicated Resolved Time COVID-19 Rule-Out 02/06/2022 02/06/2022 02/06/2022 3:19 AM EST Respiratory Rule-Out 04/19/2024 04/19/2024 025 2:24 PM EST Respiratory Rule-Out 04/28/2024 04/28/2024 025 12:02 AM EDT documented as of this encounter Care Teams Customer Sales Specialist Relationship Specialty Start Date End Date Ivett Dhillon, FUR TRIMMER-FANCY NEEDLEWORKER PCP - General Nurse Practitioner 11/10/23 documented as of this encounter
--- OUTSIDE RECORDS SUMMARY | 2024-09-01 14:59 | XMS_ITS | Encounter Summary ---
Author Organization Written tem Address [id number] [address] [place] [address] Care Team Providers Care Automation Control Integrator Name Role Phone Ivett Dhlilon APRN-FINANCE LECTURER Primary Care Provider Encounter Details Date Type Department Care Team (Late st Contact Info) Description 01/14/2023 Orders Only [facility] - Medical Oncology [address] [place] [phone] Briseyda Brown RN Age-related osteoporosis without current pathological fracture (Primary Dx); Iron deficiency anemia due to chronic blood loss; Vitamin D deficiency, unspecified; Other intestinal malabsorption; H/O gastric bypass Social History Tobacco Use Types Packs/Day Years [...] got money to buy more. Never True 10/28/2022 Within the past 12 months th e food we bought just didn't last and we didn't have money to get more. Never True 10/28/2022 Purpose - Life Answer Date Recorded Purpose and direction in life Unknown Comments No Sex and Gender Information Value Date Recorded Sex Assigned at Not on file Legal Sex Female 11:36 AM EDT Gender Identity Not on file Sexual Orientation Not on file documented as of this encounter Plan of Treatment Not on file documented as of this encounter Visit Diagnoses Diagnosis Age-related osteoporosis without current pathological fracture- Primary Iron deficiency anemia due to chronic blood loss Iron deficiency anemia secondary to blood loss (chronic) Vitamin D deficiency, unspecified Other intestinal malabsorption H/O gastric bypass documented in this encounter Additional Health Concerns Infection Onset Date Last Indicated Resolved Time Respiratory Rule-Out 04/19/2024 04/19/2024 025 2:24 PM EST Respiratory Rule-Out 04/28/2024 04/28/2024 025 12:02 AM EDT documented as of this encounter Care Teams Automation Control Integrator Relationship Specialty Start Date End Date Ivett Dhillon APRN-FINANCE LECTURER PCP - General Nurse Practitioner 11/10/23 documented as of this encounter
--- OUTSIDE RECORDS SUMMARY | 2024-09-01 14:59 | XMS_ITS | Encounter Summary ---
Author Organization [facility] tem Address [id number] [address] [place] [address] Care Team Providers Care Roll Scale Man Name Role Phone Ivett Dhillon OTHER SPATIAL SCIENTIST-[facility] Primary Care Provider Encounter Details Date Type Department Care Team (Late st Contact Info) Description 12/08/2021 Orders Only [facility] - Medical Oncology Infusion [address] [place] [phone] Ivett Dhillon, OTHER SPATIAL SCIENTIST-[facility] [address] [place], [place] [id number] Age-related osteoporosis without current pathological fracture (Primary Dx) Social History Tobacco Use Types Packs/Day Years [...] have Coronavirus / COVID-19? No / Unsure 12/11/2021 10:19 AM EDT documented as of this encounter Plan of Treatment Not on file documented as of this encounter Visit Diagnoses Diagnosis Age-related osteoporosis without current pathological fracture- Primary documented in this encounter Additional Health Concerns Infection Onset Date Last Indicated Resolved Time COVID-19 Rule-Out 02/06/2022 02/06/2022 02/06/2022 3:19 AM EST Respiratory Rule-Out 04/19/2024 04/19/2024 025 2:24 PM EST Respiratory Rule-Out 04/28/2024 04/28/2024 025 12:02 AM EDT documented as of this encounter Care Teams Roll Scale Man Relationship Specialty Start Date End Date Ivett Dhillon APRN-[facility] PCP - General Nurse Practitioner 11/10/23 documented as of this encounter
--- OUTSIDE RECORDS SUMMARY | 2024-09-01 14:59 | XMS_ITS | Clinical Summary ---
Author Organization [facility] Address [address] [place] [address] Care Team Providers Care Guitar Maker Hand Name Role Phone Unavailable Primary Care Provider Unavailabl e Social History Tobacco Use Types Packs/Day Years Used Date Smoking Tobacco: Never Assessed Comments Unknown Sex and Gender Information Value Date Recorded Sex Assigned at Not on file Legal Sex Female 7:11 AM EST Gender Identity Not on file Sexual Orientation Not on file Plan of Treatment Not on file
--- OUTSIDE RECORDS SUMMARY | 2024-09-01 14:59 | XMS_ITS | Encounter Summary ---
Author Organization [facility] Address [address] [place] [address] Care Team Providers Care Environmental Department Manager Name Role Phone Ivett Dhillon NP Unavailable [phone] Julio Spencer MD Primary Care Provider [phone] Julio Spencer MD Unavailable Encounter Details Date Type Department Care Team (Late st Contact Info) Description 12/09/2023 External Result Encounter [facility] [address] [place] [address] Ivett Dhillon NP [address] [place] [address] Social History Tobacco Use Types Packs/Day Years [...] week 04/07/2023 How often do you attend [facility] or zoroastrian services? 1 to 4 times per year 04/07/2023 Do you belong to any clubs o r organizations such as anabaptist groups, unions, fraternal or athletic groups, or [...] Date Recorded Patient Health Questionnaire-2 Score 0 12/02/2023 [facility] - Occupational Stress Questionnaire Answer Date Recorded [...] place to sleep or slept in a fpc (including now)? No 04/07/2023 Comments Unknown Sex and Gender Information Value Date Recorded Sex Assigned at Not on file Legal Sex Female 6:45 PM EDT Gender Identity Not on file Sexual Orientation Not on file documented as of this encounter Plan of Treatment Upcoming Encounters Date Type Department Care Team (Late st Contact Info) Description 10/07/2024 10:00 AM EDT Office Visit [facility] [address] [place] [address] Ivett Dhillon NP [address] [place] [phone] 09/07/2025 10:00 AM EDT Office Visit [facility] [address] [place] [address] Ivett Dhillon NP [address] [place] [address] documented as of this encounter Procedures Procedure Name Priority Date/Time Associated Diagnosis Comments XR HIP 2 OR 3 VW LEFT 12/09/2023 9:50 AM EDT documented in this encounter Results * XR hip left 2 or 3 views (12/09/2023 9:50 AM EDT) Anatomical Region Laterality Modality Lower Extremities, Hip Left Radiograp hic Imaging 12/09/2023 9:50 AM EDT Narrative 12/09/2023 9:48 AM EDT [facility] 2-3 VIEWS W OR WO PELVIS Chronic hip pain, left Findings: There is no fracture or destructive lesion. Impression: * No acute findings. Findings similar to November 11, 2020 * Consider MRI if you suspect occult process. Finalized by Dillan Mathur MD on 12/09/2023 9:48 AM Procedure Note Radiology, Radiologist, - 12/09/2023 THIS EXAM WAS PERFORMED AT [facility] HIP LT 2-3 VIEWS W OR WO PELVIS Chronic hip pain, left Findings: There is no fracture or destructive lesion. Impression: * No acute findings. Findings similar to November 11, 2020 * Consider MRI if you suspect occult process. Finalized by Dillan Mathur MD on 12/09/2023 9:48 AM Ivett Dhillon NP IMG XR PROCEDURES Final Result documented in this encounter Visit Diagnoses Not on filedocumented in this encounter Additional Health Concerns Assessment Noted Time PHQ-9 Depression Total Score: 2 12/02/19 24 5:27 PM EDT documented as of this encounter Care Teams Environmental Department Manager Relationship Specialty Start Date End Date Julio Spencer MD [address] [place] [address] PCP - General Family Medicine 03/15/23 Julio Spencer MD [address] [place] [address] PCP - Devoted 03/21/24 Ivett Dhillon NP Referring Physician Family Medicine 10/29/22 documented as of this encounter
--- OUTSIDE RECORDS SUMMARY | 2024-09-01 14:59 | XMS_ITS | Encounter Summary ---
Author Organization [facility] Address [address] [place] [address] Care Team Providers Care Vocational Rehabilitation Counselor Name Role Phone Ivett Dhillon NP Unavailable [phone] Julio Spencer MD Primary Care Provider [phone] Julio Spencer MD Unavailable Encounter Details Date Type Department Care Team (Late st Contact Info) Description 01/10/2023 Abstract [facility] [address] [place] [phone] Lidia Polanco NP Social History Tobacco Use Types Packs/Day Years Used Date Smoking Tobacco: Every Day Cigarettes Smokeless Tobacco: Never Tobacco Cessation:Ready to Q uit: Yes; Counseling Given: Not Answered Comments:Started smokin+ years Alcohol Use Standard Drinks/Week Comments Yes 0 (1 standard drink = 0.6 oz pure alcohol) 1-2 drinks monthly or less, caffeine more than 4 cups per day Comments Unknown Sex and Gender Information Value Date Recorded Sex Assigned at Not on file Legal Sex Female 6:45 PM EDT Gender Identity Not on file Sexual Orientation Not on file documented as of this encounter Plan of Treatment Upcoming Encounters Date Type Department Care Team (Late Contact Info) Description 10/07/2024 10:00 AM EDT Office Visit [facility] [address] [place] [address] Ivett Dhillon, GRACIELA [address] [place] [phone] 09/07/2025 10:00 AM EDT Office Visit [facility] [address] [place] [phone] Ivett Dhillon, GRACIELA [address] [place] [phone] documented as of this encounter Visit Diagnoses Not on filedocumented in this encounter Care Teams Vocational Rehabilitation Counselor Relationship Specialty Start Date End Date Julio Spencer MD [address] [place] [address] PCP - General Family Medicine 03/15/23 Julio Spencer MD [address] [place] [address] PCP - Devoted 03/21/24 Ivett Dhillon NP Referring Physician Family Medicine 10/29/22 documented as of this encounter
--- OUTSIDE RECORDS SUMMARY | 2024-09-01 15:00 | XMS_ITS | Patient Health Record ---
Author Organization [facility] Address [address] [place], [place] [id number] Care Team Providers Care Concrete Floor Installer Name Role Phone Sabina Wu [phone] Allergies Allergen (clinical drug ingredient) Drug/Non Drug Allergy documented on EMR Reaction Allergy Type Onset Date Status heparin Heparin Comments: bleeding ulcer Drug Allergy 05/19/2013 Active Non-steroidal anti-inflammatory agent (FN) NSAIDs Comments: bleeding ulcer Drug Allergy 05/19/2013 Active Reason For Referral No Information Medications Medication SIG (Take, Route, Frequency, Duration) Notes Start Date End Date Status Vitamin D2 Active Gabapentin Active Amitriptyline HCl Ac tive Amoxicillin 500 MG 1 capsule Orally Three times a day for 7 days 09/19/2021 Not-Taking Ferrous Sulfate Acti ve Vitamin B12 Active Dicyclomine HCl Acti ve Daliresp Active Pramipexole Dihydrochloride Active Furosemide Active Baclofen Active Pantoprazole Sodium Active Metoprolol Succinate Active Famotidine Active DULoxetine HCl Activ e Calcium Active Folic Acid Active Immunizations Vaccine Route Administration Date Status Comme nts Influenza (split), 3 yrs and above IM Intramuscular 11/24/2009 Administered Status:Complete ,Reason:Given or N/A ,FluLaval Social History Sex Assigned At : Social History Observation Description Sex Assigned At Female Problems Problem Type SNOMED Code ICD Code Onset Dates Problem Status W/U Status Risk Notes Problem Iron deficiency (57462391) Iron deficiency (E61.1) Active confirmed Problem Chronic pain syndrome (807074918) Chronic pain syndrome (G89.4) Active confirmed Comment:neurosur geon and pain management documentation reviewed diagoses from these encounters used for wsos paperwork (back pain, neck pain, chronic pain syndrome, neuropathy, implanted stimulator) paperwork completed in office, provided to pt advised to f/u with pain management per recommendation f/u here as needed, Problem Venereal disease screening (616433973) Screening for STD (sexually transmitted disease) (Z11.3) Active confirmed Comment:desires blood work testing encouraged condom use, Problem Pre-surgery evaluation (530496929) Pre-op evaluation (V72.84) (V72.84) Active confirmed Comment:Patient is at mild cardiac risk for the upcoming low risk procedure. Revised Cardiac risk index 0.4% No chest pain or SOB on exertion No Orthopnea or PND No renal failure PLAN: 1. Patient is medicall optimized to undergo the upcoming procedure for spinal cord stimulator. REviewed CBC, CMP from 02/28/2012, Problem Hemorrhagic shock (768466) Hemorrhagic shock (R57.9) Active confirmed Problem Lower urinary tract infectious disease (disorder) (0150769) UTI (lower urinary tract infection) (N39.0) Active confirmed Comment:> 100 k ecoli sensitive to macrobid - insurance didnt cover, will send in keflex, Problem Missed period (45009594) Missed period (N92.6) Active confirmed Comment:Irregula r menses expectant management . Patient re-assured,Story :last menstrual period in february/2011 patient concerned. 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 Patient asked to follow up as needed for possible referral ., Problem Nausea (609009915) Nausea (787.02) (787.02) Active confirmed Comment:Nausea likely due to viral gastroenteritis vs PUD No abd pain No Diarrhea No Fever No recent travel or unusual food No sick contacts. PLAN: 1. Start Reglan 10mg 30 minutes before food. 2. C/W PPI, Problem Kidney stone (61465676) Nephrolithiasis (592.0) (592.0) Active confirmed Comment:Nephroli thaiasis non obstructing Left renal stone. + UTI with Ecoli Treated successfully with Augmentin. No fever No Dysuria No heamturia No frequency Has back pain on the right side of the thoracic spine with MRI showed multipel disc bulging in the thoracic spine. Pain she is c/o is on the right side and her Renal stone is on theleft kidney. I advised her to call pain clinic Dr Stock to see if she can be seen earlier. Will KUB and referral to Urology. There is no renal angle tenderness on exam., Problem Vaginal discharge (634986822) Vaginal discharge (N89.8) Active confirmed Problem Fatigue (77143725) Fatigue (R53.83) Active confirmed Problem Needs influenza immunization (601790221) Need for prophylactic vaccination and inoculation against influenza (V04.81) (V04.81) Active confirmed Problem Vitamin B-complex deficiency (779913398) DEFICIENCY, B-COMPLEX NEC (266.2) (266.2) Active confirmed Problem Edema of left lower extremity (713861612) Edema of left lower extremity (R60.0) Active confirmed Comment:Pt reports edema is well controlled with current regimen. Will continue spironolactone and lasix at current strength and dose. Labs provided to pt to have obtained prior to next visit. Will f/u in 3 mos or sooner if needed., Problem Vitamin B12 deficiency (non anemic) (39185858) B12 deficiency (E53.8) Active confirmed Comment:Pt continues to receive B12 injections monthly at [facility]. Will continue folate supplementation at 1mg daily. Labs to be obtained prior to next appt. 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.20) Active confirmed Comment:antibody screen positive will order rna, genotype, lfts spoke to pt, discussed this is a communicable disease, pt needs to have partner tested, pt to be referred to GI specialist, Problem Bacterial vaginosis (257257512) Bacterial vaginosis (N76.0) Active confirmed Problem Avitaminosis D (18080657) Avitaminosis D (E55.9) Active confirmed Description:Vit a min d deficiency Problem Gynecological examination normal (263673658312332) ROUTINE GYNECOLOGICAL EXAMINATION (V72.31) (Z01.419) Active confirmed Comment:[facility] ed self breast exams pap and hpv negative 2013 continue depo, Problem Vitamin B-complex deficiency (578773818) B12 deficiency (266.2) (266.2) Active confirmed Comment:B12 deficiency. H/o Gastric Bypass. Intrinsic factor Ab negative. PLAN: 1. Recheck B12 and folate. 2. C/W B12 injections once a month. 3. Start B12 and Folic acid replacement orally., Problem H/O tobacco use, presenting hazards to health (Z87.891) 2009 Active confirmed Story:ASSESSMENT : Advised strongly on stopping. NOt ready yet and will discuss in next visits.,Descript ion:Personal history of tobacco use, presenting hazards to health Problem Candidal vulvovaginitis (30478675) Candidiasis of vulva and vagina (112.1) (B37.3) Active confirmed Problem Sprain of ankle (47731197) Sprain of ankle, right (845.00) (845.00) Active confirmed Comment:Slowly healing. Continue CAMILLA bandage and Air Cast Splint for the next week and then use the CAMILLA as needed. May remove both at night. RICE. Gentle range of motion exercises when pain subsides. RTC if pain worsens, persists. 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 Her nutritional status had improved and no edema on Diuretics. PLAN: 1. Check Renal Functions. 2. Recode Lasix to 40mg daily and reduce Spironolactone to 25mg daily.,Story:2D- ECHO showed no ventricular dysfunction Lower extremity venous scan showed no DVT, Problem Folate deficiency (584889552) Folate deficiency (E53.8) Active confirmed Comment:continue with folate supplementation check lab prior to f/u appt RTO in 3 mos, Problem Arthralgia of the pelvic region and thigh (190757635) Hip pain, right (M25.551) Active confirmed Comment:tender to palpation on right side and just above hip xray, Problem Pain in female pelvis (279636253) Pelvic pain in female (R10.2) Active confirmed Comment:pelvic US - 2.9 cm ovarian cyst on exam,uterus, cervix or adnexa nontender. Pt did have tenderness on right hip bone, and just above, will order xray of hip - negative discussed possibilities of adhesions from multiple abdominal surgeries, will refer to general surgeon as this in not female organ origin. SIte of pain is not at location of ovaries may have kidney stones as CT scan demonstrated kidney stones on right will continue to monitor cyst,Story:pt states has pain mostly with standing and walking, in RLQ by hip and just above hip. No pain with intercourse or with sitting or laying. Cycles have improved, no dysmenorrhea. No discharge. pt has seen urologist, was diagnosed with kidney stones, recurrent uti, Problem Acute bronchitis (13009541) Acute bronchitis (J20.9) Active confirmed Comment:begin zpak, prednisone, and proair meds, how to take, ADRs reviewed +fluids, rest as able RTO in 1 week if sx have not improved, Problem Weight decreased (409260554) Decreased body weight (R63.4) Active confirmed Comment:Weight loss due to loss of edema with diuretics and improvement of her Anemia. She was very ill recently with Iron Def anemia and had EGD showed esophageal ulceration and dudenitis. Symptoms are stable on PPI Patient is feeling well Also has h/o Bariatric surgery and gastric bypass and could not eat larger meals. Has nausea when eating Will add Metoclopramide prior to meals. Will follow up in 1 month and if she loses more weight will need repeat colonoscopy, PAP and Mammogram.,Descr iption:Weight loss Problem Constipation (19244411) CN (constipation) (K59.00) Active confirmed Comment:KUB was done to look for left renal stone that was seen on CT abdomen. No REnal stones seen Constipation seen on AXR. Will start Miralax and Colace Increase fiber.,Descripti on:Constipation Problem Tobacco user (942843095) Nondependent tobacco use disorder (F17.200) Active confirmed Description:Tob a operations accountant use disorder Problem Prescription renewal (702368097) Medication refill (Z76.0) Active confirmed Problem Intestinal malabsorption (978193618) Malabsorption (579.9) (579.9) Active confirmed Problem Medication refill (V68.1) (V68.1) Active confirmed Problem Right ovarian cyst (2846629729014072 8) Right ovarian cyst (N83.201) Active confirmed Comment:2.9 cm, follicular cyst, pt states now has worsening pain, has finished her vicodin given by another provider and is not yet due for a refill. WIll repeat US to see if cyst ruptured - cyst 3.5 cm, some internal echoes, slightly complex, recommend to repeat US in 6 weeks discussed with pt that site of pain is not where her ovary would be, pain unlikely of web methods developer origin,, Problem Overweight (709504211) Excess weight (E66.3) Active confirmed Description:Ove r weight Problem Iron deficiency anemia (47514943) Anemia, iron deficiency (D50.9) 2009 Active confirmed Comment:is under the care of hematology at present doing better since IV replacement of iron historically noncompliant with oral medications indicated she is still taking iron orally review of hematology consult does not identify if oral supplementation should be continued or discontinued; advised to contact hematology for clarification/ refills if needed-- call this office with any difficulty encouraged iron rich foods in diet to f/u here as needed,Descripti on:Iron deficiency anemia Problem Contraception care education (939237459) Family planning advice (Z30.09) Active confirmed Description: CONT RACEPTIVE COUNSELING NEC Problem Obese (288535418) Obese (E66.9) 2009 Active confirmed Story:ASSESSMENT : S/P gastric bypass surgery. Lost Over 300lbs. Doing well. Will needs to recheck Iron studies, BMP, CBC.,Description :Obesity Problem Strain of rotator cuff (840.4) (840.4) 2009 Active confirmed Story:ASSESSMENT : Rotator cuff + Biceps tendinitis. Will try NSAIDS + Short course of prednisone. Discussed stretching shoulder exercises and provided exercise sheet. If not better will refer to orthopedics., Problem Infected sebaceous cyst (304389599) Infected sebaceous cyst (L72.3) Active confirmed Comment:Infected Sebaceous cyst on the left parietal region of the scalp. PLAN: 1. Antibiotics 2. WArm conmpresses, Problem Bronchitis (31785475) Bronchitis (J40) Active confirmed Comment:Will order for zithromax and tessalon perles. Medications, how to take, and potential ADRs discussed with pt. Encouraged smoking cessation. Advised to f/u if s/sx progress, worsen, or do not resolve with tx., Problem High risk sexual behavior (650450880) High-risk sexual behavior (V69.2) (V69.2) Active confirmed Comment:STD panel ordered : HepBsAg, HepC Abs, RPR , HIV , HSV 1 &2 IgG, GC, Chlamydia , Genital culture ., Problem Medroxyprogestero ne acetate depot injection given (situation) (194648840) Depo contraception (Z30.42) Active confirmed Comment:Contrace ption and AUB. Controlled with depo injection. Desires continuation. Patient counseled. DMPA 150mg IM x1 given. Patient continuing with calcium supplementation. RTC 3months, Plan Of Treatment Pending Test Test Name Order Date Vitamin D, 25-Hydroxy (18588) 08/16/2011 Insurance Providers Payer Name Payer Address Payer Phone Subscriber Number Group Number Insured Name Patient Relationship to Insured Coverage Start Date Coverage End Date [employer] by Adithya Lombardi [address] [place] [address] [id number] Janee Doty Self - patient is the insured 5 [employer] [address] [address] [place] [address] [id number] Janee Doty Self - patient is the insured 2 [employer] [address] [place], [place] [id number] Janee Doty Self - patient is the insured 5 DMedicaid after Insurance [address] [place], [place] [id number] Janee Doty Self - patient is the insured 2 Medical (General) History Medical History History ICD Code ANEMIA, ProblemStatus: Active, , Anemia, iron deficiency, RHIANNON CRIPTION: Iron deficiency anemia, ProblemStatus: Active, , back apin, ProblemStatus: Inactive, , Backache, ProblemStatus: Active, , Obesity, ProblemStatus: Active, , Vitamin B12 deficiency anemia (281.1), P roblemStatus: Active, , Surgical History Surgery Date(Month/Year) Back Stimulator Inserted, CO MMENTS: 2012, ProblemStatus: Active, removal of stimulator from back, Problem Status: Active, Gastric Bypass, COMMENTS: 12/1999, Probl emStatus: Active, [place] han, COMMENTS: 08/2001, ProblemSta tus: Active, endoscopy, ProblemStatus: Active, Hernia Repair, COMMENTS: 08/2001, Problem Status: Active, SURGICAL: No previous surgery, ProblemSt atus: Inactive, 2009-07-22
--- OUTSIDE RECORDS SUMMARY | 2024-09-01 15:00 | XMS_ITS | Encounter Summary ---
Author Organization [facility] Address [address] [place] [address] Care Team Providers Care Flight Data Technician Name Role Phone Ivett Dhillon NP Unavailable [phone] Julio Spencer MD Primary Care Provider [phone] Julio Spencer MD Unavailable Encounter Details Date Type Department Care Team (Late st Contact Info) Description 04/02/2023 Abstract [facility] [address] [place] [phone] Ivett Dhillon, GRACIELA [address] [place] [id number] Social History Tobacco Use Types Packs/Day Years [...] 10/07/2024 10:00 AM EDT Office Visit [facility] [address] [place] [address] Ivett Dhillon NP [address] [place] [phone] 09/07/2025 10:00 AM EDT Office Visit [facility] [address] [place] [phone] Ivett Dhillon NP [address] [place] [phone] documented as of this encounter Visit Diagnoses Not on filedocumented in this encounter Care Teams Flight Data Technician Relationship Specialty Start Date End Date Julio Spencer MD [address] [place] [phone] PCP - General Family Medicine 03/15/23 Julio Spencer MD [address] [place] [phone] PCP - Devoted 03/21/24 Ivett Dhillon NP Referring Physician Family Medicine 10/29/22 documented as of this encounter
--- OUTSIDE RECORDS SUMMARY | 2024-09-01 15:00 | XMS_ITS | Encounter Summary ---
Author Organization [facility] Address [address] [place] [address] Care Team Providers Care Pastry Baker Name Role Phone Ivett Dhillon NP Unavailable [phone] Julio Spencer MD Primary Care Provider [phone] Julio Spencer MD Unavailable Reason for Visit * Reason Comments Med Refill Encounter Details Date Type Department Care Team (Late st Contact Info) Description 08/09/2024 Refill [facility] [address] [place] [address] Ivett Dhillon NP [address] [place] [address] Localized edema; Edema; Restless legs syndrome; Spondylolysis, lumbar region; Acquired spondylolisthesis Social History Tobacco Use Types Packs/Day Years [...] week 04/07/2023 How often do you attend [facility] or yarsanism services? 1 to 4 times per year 04/07/2023 Do you belong to any clubs o r organizations such as pentecostal groups, unions, fraternal or athletic groups, or [...] Recorded Patient Health Questionnaire-2 Score 0 12/02/2023 [facility] - Occupational Stress Questionnaire Answer Date Recorded [...] place to sleep or slept in a halfway (including now)? No 04/07/2023 Comments Unknown Sex and Gender Information Value Date Recorded Sex Assigned at Not on file Legal Sex Female 6:45 PM EDT Gender Identity Not on file Sexual Orientation Not on file documented as of this encounter Miscellaneous Notes * Telephone Encounter - Ivett Dhillon NP - 08/10/2024 6:05 PM EDT Please contact pt, she needs a fu appt, [place] documented in this encounter Plan of Treatment Upcoming Encounters Date Type Department Care Team (Late st Contact Info) Description 10/07/2024 10:00 AM EDT Office Visit [facility] [address] [place] [address] Ivett Dhillon NP [address] [place] [phone] 09/07/2025 10:00 AM EDT Office Visit [facility] [address] [place] [address] Ivett Dhillon NP [address] [place] [phone] documented as of this encounter Visit Diagnoses Diagnosis Localized edema Edema Edema Restless legs syndrome Restless legs syndrome (RLS) Spondylolysis, lumbar region Lumbosacral spondylosis without myelopathy Acquired spondylolisthesis documented in this encounter Additional Health Concerns Assessment Noted Time PHQ-9 Depression Total Score: 2 12/02/19 24 5:27 PM EDT documented as of this encounter Care Teams Pastry Baker Relationship Specialty Start Date End Date Julio Spencer MD [address] [place] [phone] PCP - General Family Medicine 03/15/23 Julio Spencer MD [address] [place] [phone] PCP - Devoted 03/21/24 Ivett Dhillon NP Referring Physician Family Medicine 10/29/22 documented as of this encounter
--- OUTSIDE RECORDS SUMMARY | 2024-09-01 15:00 | XMS_ITS | Encounter Summary ---
Author Organization [facility] Address [address] [place] [address] Care Team Providers Care Manager Of It Name Role Phone Ivett Dhillon NP Unavailable [phone] Julio Spencer MD Primary Care Provider [phone] Julio Spencer MD Unavailable Encounter Details Date Type Department Care Team (Late st Contact Info) Description 04/12/2023 External Result Encounter [facility] [address] [place] [address] Ivett Dhillon NP [address] [place] [address] Social History Tobacco Use Types Packs/Day Years [...] week 04/07/2023 How often do you attend [facility] or congregation services? 1 to 4 times per year 04/07/2023 Do you belong to any clubs o r organizations such as episcopal groups, unions, fraternal or athletic groups, or [...] medical care, and heating? Somewhat hard 04/07/2023 [facility] - Occupational Stress Questionnaire Answer Date [...] place to sleep or slept in a long term (including now)? No 04/07/2023 Comments Unknown Sex [...] Office Visit [facility] [address] [place] [address] Ivett Dhillon NP [address] [place] [phone] 09/07/2025 10:00 AM EDT Office Visit [facility] [address] [place] [address] Ivett Dhillon NP [address] [place] [phone] documented as of this encounter Procedures Procedure Name Priority Date/Time Associated Diagnosis Comments DEXA BONE DENSITY 04/16/2023 3:1 4 PM EST documented in this encounter Results * DEXA bone density (04/16/2023 3:14 PM EST) Anatomical Region Laterality Modality Body Radiographic Ann-Marie ging 04/16/2023 3:14 PM EST Narrative 04/12/2023 9:54 PM EST THIS EXAM WAS PERFORMED AT [facility] *ADDENDUM*The current National Osteoporosis Foundation guide recommends treating patients with FRAX ten year risk scores of greater than or equal to 3% for hip fracture or greater than or equal to 20% for major osteoporotic fracture, to reduce their fracture risk. Finalized by Cody Cook MD on 04/16/2023 3:13 PM DEXA SCAN CENTRAL SKELETAL CLINICAL HISTORY: Osteoporosis screening. . COMPARISON: 02/06/2018 Dual X-ray Absorptiometry (DEXA) was performed. LUMBAR SPINE (L1-L4): Bone density is 1.014 gm/cm2. T-score is -1.5. Z-score is -2.1. LEFT FEMORAL NECK: Bone density is 0.867 gm/cm2. T-score is -1.2. Z-score is -1.1. RIGHT FEMORAL NECK: Bone density is 0.828 gm/cm2. T-score is -1.5. Z-score is -1.4. If this patient is not currently on therapy, the 10-year probability for a major osteoporotic fracture (utilizing FRAX) is 5.0% and for a hip fracture is 0.7%. (According to WHO, therapy is indicated if 10-year risk for major osteoporotic fracture is greater than or equal to 20% or the 10-risk for a hip fracture is greater than or equal to 3%.) IMPRESSION: 1. Osteopenia bone mineral density by the WHO criteria (using T-scores). WORLD HEALTH ORGANIZATION (WHO) GUIDELINES: * T-score compares patient BMD to a reference of young normal controls. * Z-score compares patient BMD to age, gender, and race matched controls. T-score of -1 or greater = Normal T-score less than -1.0 but greater than -2.5 = Osteopenia T-score of -2.5 or less = Osteoporosis In patients, who are osteopenic or osteoporotic, hormonal therapy, other medical therapy, dietary supplementation, and weight bearing exercise may prevent further bone mineral loss. Repeat DEXA testing may be indicated but is based on individual patient clinical characteristics. Finalized by Alberto Martinez MD on 04/12/2023 9:54 PM Procedure Note Radiology, Radiologist, - 04/16/2023 THIS EXAM WAS PERFORMED AT [facility] *ADDENDUM*The current National Osteoporosis Foundation guide recommendstreating patients with FRAX ten year risk scores of greater than or equalto 3% for hip fracture or greater than or equal to 20% for majorosteoporotic fracture, to reduce their fracture risk. Finalized by Cody Cook MD on 04/16/2023 3:13 PM DEXA SCAN CENTRAL SKELETAL CLINICAL HISTORY: Osteoporosis screening. . COMPARISON: 02/06/2018 Dual X-ray Absorptiometry (DEXA) was performed. LUMBAR SPINE (L1-L4): Bone density is 1.014 gm/cm2. T-score is -1.5. Z-score is -2.1. LEFT FEMORAL NECK: Bone density is 0.867 gm/cm2. T-score is -1.2. Z-score is -1.1. RIGHT FEMORAL NECK: Bone density is 0.828 gm/cm2. T-score is -1.5. Z-score is -1.4. If this patient is not currently on therapy, the 10-year probability for amajor osteoporotic fracture (utilizing FRAX) is 5.0% and for a hipfracture is 0.7%. (According to WHO, therapy is indicated if 10-year riskfor major osteoporotic fracture is greater than or equal to 20% or [id number] for a hip fracture is greater than or equal to 3%.) IMPRESSION: 1. Osteopenia bone mineral density by the WHO criteria (using T-scores). WORLD HEALTH ORGANIZATION (WHO) GUIDELINES: * T-score compares patient BMD to a reference of young normal controls. * Z-score compares patient BMD to age, gender, and race matchedcontrols. T-score of -1 or greater = Normal T-score less than -1.0 but greater than -2.5 = Osteopenia T-score of -2.5 or less = Osteoporosis In patients, who are osteopenic or osteoporotic, hormonal therapy, othermedical therapy, dietary supplementation, and weight bearing exercise mayprevent further bone mineral loss. Repeat DEXA testing may be indicatedbut is based on individual patient clinical characteristics. Finalized by Alberto Martinez MD on 04/12/2023 9:54 PM Ivett Dhillon NP IMG DXA PROCEDURES Edited Resul t - Final documented in this encounter Visit Diagnoses Not on filedocumented in this encounter Care Teams Manager Of It Relationship Specialty Start Date End Date Julio Spencer MD [address] [place] [address] PCP - General Family Medicine 03/15/23 Julio Spencer MD [address] [place] [phone] PCP - [facility] 03/21/24 Ivett Dhillon NP Referring Physician Family Medicine 10/29/22 documented as of this encounter
--- OUTSIDE RECORDS SUMMARY | 2024-09-01 15:00 | XMS_ITS | Encounter Summary ---
Author Organization [facility] Address [address] [place] [address] Care Team Providers Care Wound Nurse Name Role Phone Ivett Dhillon NP Unavailable [phone] Julio Spencer MD Primary Care Provider [phone] Julio Spencer MD Unavailable Reason for Visit * Reason Comments Med Refill Encounter Details Date Type Department Care Team (Late st Contact Info) Description 06/24/2023 Refill [facility] [address] [place] [address] Ivett Dhillon NP [address] [place] [address] Chronic obstructive pulmonary disease, unspecified (HCC); Other specified chronic obstructive pulmonary disease (HCC) Social History Tobacco Use Types Packs/Day Years [...] week 04/07/2023 How often do you attend [facility] or amish services? 1 to 4 times per year 04/07/2023 Do you belong to any clubs o r organizations such as latter day groups, unions, fraternal or athletic groups, or [...] Date Recorded Patient Health Questionnaire-2 Score 0 06/10/2023 [facility] - Occupational Stress [...] place to sleep or slept in a correction (including now)? No 04/07/2023 Comments Unknown Sex [...] Visit [facility] [address] [place] [address] Ivett Dhillon, GRACIELA [address] [place] [phone] 09/07/2025 10:00 AM EDT Office Visit [facility] [address] [place] [address] Ivett Dhillon NP [address] [place] [phone] documented as of this encounter Visit Diagnoses Diagnosis Chronic obstructive pulmonary disease, unspecified (HCC) Other specified chronic obstructive pulmonary disease (HCC) documented in this encounter Care Teams Wound Nurse Relationship Specialty Start Date End Date Julio Spencer MD [address] [place] [phone] PCP - General Family Medicine 03/15/23 Julio Spencer MD [address] [place] [address] PCP - [facility] 03/21/24 Ivett Dhillon NP Referring Physician Family Medicine 10/29/22 documented as of this encounter
--- OUTSIDE RECORDS SUMMARY | 2024-09-01 15:00 | XMS_ITS | Clinical Summary ---
Author Organization [facility] Address [address] [place] [address] Care Team Providers Care Hot Box Operator Name Role Phone Ivett Dhillon NP Unavailable [phone] Julio Spencer MD Primary Care Provider [phone] Julio Spencer MD Unavailable Allergies Active Allergy Reactions Criticality Noted Date Comments Heparin GI intolerance,Unknown 02/05/2014 Other Reaction(s): bleeding Pt risk of GI bleed Other reaction(s): bleeding Nsaids GI intolerance,Unknown 02/05/2014 Other Reaction(s): Unknown Pt high risk for GI bleed Pt high risk for GI bleed Other Reaction(s): Unknown Other 04/05/2016 Other Reaction(s): bleeding Medications zoledronic acid (Reclast) 5 MG/100ML solution Infuse 5 mg into a venous catheter. Active tiZANidine (Zanaflex) 4 MG tablet every 8 (eight) hours. Active Roflumilast 500 MCG tablet Take 1 tablet by mouth 1 (one) time each day at the same time. Active Multiple Vitamins-Tax Technician als (Oncovite) tablet Take 1 tablet by mouth in the morning. Active ferrous sulfate 325 (65 Fe) MG tablet Take 325 mg by mouth in the morning. Take with meals. Active famotidine (Pepcid) 20 MG tablet Take 20 mg by mouth in the morning. Active dicyclomine (Bentyl) 20 MG tablet Take 20 mg by mouth in the morning and 20 mg in the evening and 20 mg before bedtime. Active cyanocobalamin (Vitamin B-12) 1000 MCG tablet 1 (one) time each day at the same time. Active baclofen (Lioresal) 10 MG tablet Take 10 mg by mouth in the morning and 10 mg before bedtime. Active ergocalciferol (Vitamin D-2) 1.25 MG (63760 UT) capsule TAKE 1 CAPSULE BY MOUTH ONCE A WEEK DIRECTED Active metoprolol succinate XL (Toprol-XL) 25 MG 24 hr tablet Take by mouth Daily. Do not crush or chew. Active ipratropium-al buterol (Duo-Neb) 0.5-2.5 mg/3 mL nebulizer solutionIndica tions:Chronic obstructive pulmonary disease, unspecified COPD type (HCC) Take 3 mL by nebulization 4 (four) times a day as needed for shortness of breath or wheezing 1080 mL 1 08/06/19 24 Active pantoprazole (ProtoNix) 40 MG EC tabletIndicati ons:Abdominal pain,Unspecifi ed abdominal pain Take 1 tablet (40 mg) by mouth in the morning. Take before meals. 30 tablet 5 01/31/20 24 Active cephalexin (Keflex) 500 MG capsule 04/20/19 25 Active Breyna 160-4.5 MCG/ACT inhaler INHALE 2 PUFFS IN THE MORNING AND 2 PUFFS BEFORE BEDTIME. RINSE MOUTH AFTER USE. 04/12/19 25 Active meclizine (Antivert) 25 MG tablet Take 25 mg by mouth 3 (three) times a day as needed 04/20/19 25 Active Breztri Aerosphere 160-9-4.8 MCG/ACT aerosol Inhale 2 puffs in the morning and 2 puffs before bedtime. 04/13/19 25 Active DULoxetine (Cymbalta) [address] capsuleIndicat ions:Other chronic pain Take 1 capsule (60 mg) by mouth Daily 30 capsule 2 07/14/19 25 Active DULoxetine (Cymbalta) [address] capsuleIndicat ions:Other chronic pain Take 1 capsule (30 mg) by mouth Daily 30 capsule 2 07/14/19 25 Active amitriptyline (Elavil) 100 MG tabletIndicati ons:Other chronic pain Take 1 tablet (100 mg) by mouth at bedtime 90 tablet 07/15/19 25 2024 Active furosemide (Lasix) 40 MG tabletIndicati ons:Localized edema,Edema Take 1 tablet (40 mg) by mouth in the morning and 1 tablet (40 mg) in the evening. 60 tablet 1 08/11/19 25 2024 Active pramipexole (Mirapex) 0.5 MG tabletIndicati ons:Restless legs syndrome Take 1 tablet (0.5 mg) by mouth at bedtime Take 2-3 hours prior to bedtime 30 tablet 1 08/11/19 25 2024 Active gabapentin (Neurontin) 600 MG tabletIndicati ons:Neuropathi c Pain,Periphera l Neuropathy Take 1 tablet (600 mg) by mouth in the morning and 1 tablet (600 mg) at noon and 1 tablet (600 mg) in the evening and 1 tablet (600 mg) before bedtime. 120 tablet 1 08/11/192024 Active albuterol HFA 90 mcg/act inhalerIndicat ions:Chronic obstructive pulmonary disease, unspecified (HCC),Other specified chronic obstructive pulmonary disease (HCC) Inhale 2 puffs every 6 (six) hours if needed for wheezing or shortness of breath 18 g 08/17/192024 Active furosemide (Lasix) 40 MG tabletIndicati ons:Localized edema,Edema Take 1 tablet (40 mg) by mouth in the morning and 1 tablet (40 mg) before bedtime. 60 tablet 5 01/20/20 24 2024 Discontinued gabapentin (Neurontin) 600 MG tabletIndicati ons:Neuropathi c Pain,Periphera l Neuropathy Take 1 tablet (600 mg) by mouth in the morning and 1 tablet (600 mg) at noon and 1 tablet (600 mg) in the evening and 1 tablet (600 mg) before bedtime. 120 tablet 5 01/20/20 24 2024 Discontinued pramipexole (Mirapex) 0.5 MG tabletIndicati ons:Restless legs syndrome Take 1 tablet (0.5 mg) by mouth at bedtime Take 2-3 hours prior to bedtime 30 tablet 5 01/27/20 24 2024 Discontinued predniSONE (Deltasone) 10 MG tablet 04/20/19 25 2024 Discontinued(T herapy completed) albuterol HFA 90 mcg/act inhalerIndicat ions:Chronic obstructive pulmonary disease, unspecified (HCC),Other specified chronic obstructive pulmonary disease (HCC) Inhale 2 puffs every 6 (six) hours if needed for wheezing or shortness of breath 18 g 1 06/13/19 25 2024 Discontinued Active Problems Problem Noted Date Diagnosed Date Encounter for subsequent [facility] wellness visit (AWV) in Medicare patient 09/01/2024 Assessment & Plan (09/01/2024 7:15 AM EDT): Reviewed Ht/Wt/BMI Recommend eye exam yearly Recommend dental exams twice a year Balance work/leisure activities Exercises is recommended most days of the week (appropriate as chronic conditions allow) 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 Options for quitting smoking include: cold turkey, hypnosis, acupuncture, nicotine replacement meds (gum, lozenges, and patches), Buproprion, and Varenicline. At this time pt is encouraged to evaluate their goals for wanting to quit smoking, and reach out to provider when ready to start this process Body mass index (BMI) 36.0-36.9, adult Encounter for annual routine [facility]necological exami [facility] 03/02/2024 Morbid (severe) obesity due to excess calories 1 03/22/2023 Assessment & Plan (09/01/2024 6:44 AM EDT): Discussed with patient their BMI (actual, verses recommended). We have also discussed lifestyle modifications: attempts to perform physical activity as chronic conditions allow, also to monitor dietary intake: increasing protein/fruits/veggies and lowering carb intake (unless contraindicated). Limit sodas, juices, and sugary drinks. Assessment & Plan (01/20/2024 6:47 PM EST): Discussed with patient their BMI (actual, verses recommended). We have also discussed lifestyle modifications: attempts to perform physical activity as chronic conditions allow, also to monitor dietary intake: increasing protein/fruits/veggies and lowering carb intake (unless contraindicated). Limit sodas, juices, and sugary drinks. 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 04/08/2023 Assessment & Plan (09/01/2024 7:18 AM EDT): Non compliant with iron, has been referred to hematology at [facility] Assessment & Plan (12/02/2023 6:16 PM EDT): Non compliant with iron, will refer to hematology at [facility] Osteoporosis 04/08/2023 Overview (01/21/2024): DEXA scan: 04/12/23 lumbar spine T score -1.5, left hip -1.2 and right hip -1.5: Osteopenia Reclast: 02/06/2023 Assessment & Plan (01/21/2024 12:52 PM EST): Unsure when had her last reclast infusion Done 02/06/23, will be due again, and get basic metabolic profile Cough in adult 04/08/2023 Chronic obstructive pulmonary disease, unspecifi ed 04/08/2023 Centrilobular emphysema 04/08/2023 Assessment & Plan (09/01/2024 6:44 AM EDT): Continue with current inhalers Recommend quitting smoking Assessment & Plan (01/20/2024 6:45 PM EST): Continue with current inhalers Recommend quitting smoking Assessment & Plan (12/02/2023 6:15 PM EDT): Continue with current inhalers Recommend quitting smoking Varicose veins of bilateral lower extremities wi th pain 04/08/2023 Secondary pulmonary arterial hypertension 2023 Diverticulosis 04/08/2023 Lower extremity edema 04/08/2023 Assessment & Plan (01/20/2024 8:15 PM EST): Stable on current therapy Chronic hip pain, left 04/08/2023 Assessment & Plan (01/20/2024 7:09 PM EST): Did not send referral to ortho, will send to dr monica roblero office Assessment & Plan (12/02/2023 6:16 PM EDT): Check hip xray Vitamin D deficiency 04/08/2023 Non-compliance with treatment 04/08/2023 Assessment & Plan (09/01/2024 7:16 AM EDT): Cancels and no shows for appts, as well as fu for infusions Does not take her supplements regularly for post bariatric surgery maintenance Migraine headache without aura 04/08/2023 half-way current use of inhaled steroid 024 Allergic rhinitis 04/08/2023 Hypocalcemia 04/08/2023 Depression 04/08/2023 Gastroesophageal reflux disease without esophagi tis 02/12/2023 Assessment & Plan (09/01/2024 6:44 AM EDT): Recommendations: freq small meals, nothing to eat or drink at least 2 hours prior to bed, limit caffeine, alcohol, as well as spicy foods Meds to limit or avoid if possible: NSAIDS Elevate HOB if possible Current meds: pepcid and pantoprazole Unilateral primary osteoarthritis, left hip 10/19 Porokeratosis 10/29/2022 Chronic diastolic (congestive) heart failure Overview (04/08/2023): Last Assessment & Plan: [facility] II- currently euvolemic Continue GDMT- continue lasix 40 mg bid Monitor daily weights, I&O, fluid restriction 1.5-2L/day, renal function and electrolytes H/O gastric bypass 11/25/2020 Hypoxemia 06/14/2019 COPD exacerbation 06/13/2019 Assessment & Plan (06/10/2023 8:03 PM EDT): Still not better with atb from last month, cannot cough mucus up Will treat with augmentin BID Fu in 3 weeks Vitamin B12 deficiency 07/02/2016 Thoracic spondylosis without myelopathy 04/05/19 17 Scapulohumeral fibrositis 04/05/2016 Right shoulder pain 04/05/2016 Lumbosacral spondylosis without myelopathy 04/05 Lumbar spondylosis 04/05/2016 Lumbago 04/05/2016 Displacement of thoracic int ervertebral disc without myelopathy 04/05/2016 Chronic pain syndrome 04/05/2016 Assessment & Plan (01/20/2024 8:12 PM EST): Reviewed [employer] Spinal cord stimulator : still has to reach out to them regarding evaluation, has the phone number Resolved Problems Problem Noted Date Diagnosed Date Resolved Date Wound dehiscence 12/02/2023 04/20/2024 Assessment & Plan (12/02/2023 6:19 PM EDT): Pt has number to pain doctor who put in spinal cord stimulator I have advised that they are the people to contact ([facility]) to get this taken care of She states she will call Cellulitis of right lower extremity 11/14/2023 04/20/2024 Assessment & Plan (12/02/2023 6:16 PM EDT): Resolving, is finished with atb Right leg swelling 06/10/2023 Assessment & Plan (06/10/2023 8:04 PM EDT): Will send to [facility] to r/o DVT Differentials could also be phlebitis Lumbar spondylolysis 04/08/2023 024 Lumbar disc disease 04/08/2023 12/02/20 24 Bulging lumbar disc 04/08/2023 01/20/20 24 Dental abscess 04/08/2023 04/08/2023 Iron deficiency anemia due t o chronic blood loss 11/25/2020 04/08/2023 Tobacco abuse 06/14/2019 04/20/2024 Assessment & Plan (01/20/2024 6:47 PM EST): The patient has been advised of the risks of continued smoking: stroke, CT, all forms of cancer, lung disease, and . Options for quitting smoking include: cold turkey, hypnosis, acupuncture, nicotine replacement meds (gum, lozenges, and patches), Buproprion, and Varenicline. At this time pt is encouraged to evaluate their goals for wanting to quit smoking, and reach out to provider when ready to start this process Obstructive sleep apnea (adult) (pediatric) 04/05/2016 04/08/2023 Obesity, unspecified 04/05/2016 024 Back muscle spasm 04/05/2016 01/20/2024 Encounters Date Type Department Care Team Description 09/01/2024 1:40 PM EDT Office Visit [facility] [address] [place] [address] Ivett Dhillon NP Centrilobular emphysema (HCC) (Primary Dx); Gastroesophageal reflux disease without esophagitis; Morbid (severe) obesity due to excess calories ([facility]); Cigarette nicotine dependence without complication; Encounter for subsequent annual wellness visit (AWV) in Medicare patient; Non-compliance with treatment; Encounter for screening mammogram for malignant neoplasm of breast; Iron deficiency anemia following bariatric surgery 08/16/2024 Refill [facility] [address] [place] [address] Ivett Dhillon NP Chronic obstructive pulmonary disease, unspecified (HCC); Other specified chronic obstructive pulmonary disease (HCC) 08/09/2024 Refill [facility] [address] [place] [address] Ivett Dhillon NP Localized edema; Edema; Restless legs syndrome; Spondylolysis, lumbar region; Acquired spondylolisthesis 07/13/2024 Refill [facility] [address] [place] [address] Ivett Dhillon, GRACIELA Other chronic pain 07/10/2024 Refill [facility] [address] [place] [address] Ivett Dhillon NP Other chronic pain 06/12/2024 Refill [facility] [address] [place] [address] Ivett Dhillon, GRACIELA Chronic obstructive pulmonary disease, unspecified (HCC); Other specified chronic obstructive pulmonary disease (HCC) from Last 3 Months Immunizations Immunization Administration Dates Next Due Influenza Whole 12/06/2008 Influenza, injectable, MDCK, preservative free, quadrivalent 12/02/2023 Influenza, seasonal, injectable 11/24/2009 Tdap 10/28/2022,09/23/2012 Family History Medical History Relation Name Comments Heart disease Father Throat cancer Father Diabetes Maternal Grandmother Hypertension Maternal Grandmother Diabetes Mother Heart disease Mother Hypertension Mother Cancer Paternal Grandfather Relation Name Status Comments Father Maternal Grandmother Mother Paternal Grandfather Social History Tobacco Use Types Packs/Day Years Used Date Smoking Tobacco: Every Day Cigarettes Smokeless Tobacco: Never Tobacco Cessation:Ready to Q uit: Not Asked; Counseling Given: Not Answered Comments:Started smokin+ years [...] often do you attend chur ch or jewish services? 1 to 4 times per year 04/07/2023 Do you belong to any clubs o r organizations such as buddhism groups, unions, fraternal or athletic groups, or [...] Recorded Patient Health Questionnaire-2 Score 0 09/01/[address] [facility] - Occupational Stress Questionnaire Answer Date [...] place to sleep or slept in a nursing home (including now)? No 04/07/2023 Comments Unknown Sex [...] (235 lb) 09/01/2024 1:39 PM EDT Height 182.9 cm (6') 02/26/2024 2:31 PM EST Body Mass Index 31.87 02/26/2024 2:31 PM EST Plan of Treatment Upcoming Encounters Date Type Department Care Team (Late st Contact Info) Description 10/07/2024 10:00 AM EDT Office Visit [facility] [address] [place] [address] Ivett Dhillon NP [address] [place] [phone] 09/07/2025 10:00 AM EDT Office Visit [facility] [address] [place] [address] Ivett hDillon NP [address] [place] [phone] Health Maintenance Due Date Last Done Comments CT Colonography 1971 FIT-DNA 1971 FIT 1971 FOBT 1971 Medicare Annual Wellness (AWV) 1971 Sigmoidoscopy 1971 HPV/Cotest 2001 Cervical Cancer Screening 02/18/2018 Pap Smear 02/18/2018 02/18/2015 Mammogram 08/16/2023 08/15/2022, 07/20, 03/15/2020, Additional history exists Influenza Vaccine (#1) 2024 12/02/2023, 2009, 12/06/2008 Colonoscopy 06/24/2030 06/24/2020 Colorectal Cancer Screening 06/24/2030 Insurance [employer] [place]ICAID [place] Care Teams Hot Box Operator Relationship Specialty Start Date End Date Julio Spencer MD [address] [place] [address] PCP - General Family Medicine 03/15/23 Julio Spencer MD [address] [place] [address] PCP - Devoted 03/21/24 Ivett Dhillon NP Referring Physician Family Medicine 10/29/22
[2024-09-01 16:22] LABS: Hematocrit 28.7 % (36.0-48.0); Hemoglobin 7.9 g/dL (12.0-16.0); Immature Granulocytes Abs Auto 0.01 10^3/uL (0.00-0.03); Immature Granulocytes Pct Auto 0.1 % (0.0-0.5); Lymphocytes Absolute Auto 1.8 10^3/uL (1.2-3.8); Mean Corpuscular HGB Conc 27.5 g/dL (29.9-35.2); Mean Corpuscular Hemoglobin 20.3 pg (26.7-34.0); Mean Corpuscular Volume 73.6 fL (81.0-99.0); Platelet Count 249 10^3/uL (150-450); Red Blood Count 3.90 10^6/uL (4.20-5.40); White Blood Count 7.0 10^3/uL (4.0-11.0)
[2024-09-01 16:35] LABS: Glucose Urine UA NEGATIVE (NEGATIVE)
[2024-09-01 16:45] LABS: Alanine Aminotransferase 17 U/L (14-59); Albumin Globulin Ratio 0.8; Albumin Level 3.0 g/dL (3.4-5.0); Alkaline Phosphatase 95 U/L (46-116); Anion Gap 9.4; Aspartate Amino Transferase 13 U/L (15-37); Blood Urea Nitrogen 10.0 mg/dL (7.0-18.0); Calcium 8.3 mg/dL (8.5-10.1); Carbon Dioxide 29.2 mmol/L (21.0-32.0); Chloride 103 mmol/L (98-107); Estimated GFR (African America >60 (>=60 mL/min/1.73m^2); Estimated GFR (Non-African Ame >60 (>=60 mL/min/1.73m^2); Globulin 3.8 g/dL; Glucose 85 mg/dL (74-106); Potassium 3.6 mmol/L (3.5-5.1); Sodium 138 mmol/L (136-145); Total Protein 6.8 g/dL (6.4-8.2)
[2024-09-01 16:56] LABS: Free T3 2.39 pg/mL (2.18-3.98); Magnesium 1.9 mg/dL (1.8-2.4); Thyroid Stimulating Hormone 0.724 uIU/mL (0.358-3.740); Uric Acid 2.7 mg/dL (2.6-6.0)
[2024-09-01 16:57] LABS: Cast Seen? NONE SEEN #/LPF (NONE SEEN); Crystals Seen? None Seen #/HPF (None Seen); Urine Culture Indicated NO
[2024-09-01 17:01] LABS: Iron 14.0 ug/dL (50.0-170.0)
[2024-09-01 17:24] LABS: Folate 11.20 ng/mL (8.60-58.90)
[2024-09-03 04:07] LABS: Vitamin B12 220 pg/mL (232-1245)
== END 2024-09-01 14:54 | disposition home or self-care (01) ==
LOC: CT 14:56
PROVIDERS: PCP Nurse Practitioner; Visit Provider Nurse Practitioner
DX: M79.604 Pain in right leg (principal); R60.0 Localized edema; J44.9 Chronic obstructive pulmonary disease, unspecified; I27.21 Secondary pulmonary arterial hypertension; K21.9 Gastro-esophageal reflux disease without esophagitis; E53.8 Deficiency of other specified B group vitamins; E83.51 Hypocalcemia; F32.0 Major depressive disorder, single episode, mild; F17.210 Nicotine dependence, cigarettes, uncomplicated
CPT/HCPCS: 36415; 80053; 81001; 82306; 82607; 82728; 82746; 83540; 83721; 83735; 84439; 84443; 84481; 84550; 85025; 85652; 86140; 93971